=== PATIENT | female | born 1940 | race African-American/Black ===

== ENCOUNTER 2019-07-25 06:16 | Day surgery (SDC) | payer BC, OTHER ==
[2019-07-22 08:34] VITALS: BMI 30.9
[2019-07-25 06:49] VITALS: BP 133/77; PULSE 51; TEMP 98.2
== END 2019-07-25 06:58 | disposition home or self-care (01) ==
LOC: JSAMEDAYSX 06:16 → JASUSAT 06:16 → UNDOADMIN 06:16 → JASUSAT 06:58 → UNDODISIN 06:58 → EDSTATUS 08:00
PROVIDERS: ATTEND Orthopaedic Surgery Orthopaedic Surgery of the Spine
DX: Z53.8 Procedure and treatment not carried out for other reasons (principal)
CPT/HCPCS: 86850; 86900; 86901

== ENCOUNTER 2019-08-15 06:07 | Inpatient (IN) | payer OTHER, BC ==
[2019-08-15] MEDS ORDERED: BUPIVACAINE LIPOSOME/PF (EXPAREL) 266 MG/20 ML VIAL ONE (07:20)
[2019-08-15] MEDS ORDERED: HEPARIN NA (PORCINE) 5,000 UNITS/ML 1ML VIAL ONE (07:31)
[2019-08-15] MEDS ORDERED: BENZOIN/ALOE VERA/STORAX/TOLU 58 ML BOTTLE ONE (07:32)
[2019-08-15] MEDS ORDERED: THROMBIN (BOVINE) 5,000 UNIT VIAL TP ONE ×5 (07:32→10:41)
[2019-08-15] MEDS ORDERED: MIDAZOLAM HCL 2 MG/2 ML SINGLE DOSE VIAL ONE ×2 (08:10)
[2019-08-15] MEDS ORDERED: LIDOCAINE HCL/PF 2% SDV 5ML VIAL ONE ×2 (08:29→09:28)
[2019-08-15] MEDS ORDERED: fentaNYL CITRATE 250 MCG/5 ML VIAL ONE (08:29)
[2019-08-15] MEDS ORDERED: PROPOFOL 20 ML ONE ×13 (08:29→11:12)
[2019-08-15] MEDS ORDERED: SUCCINYLCHOLINE CHLORIDE 200 MG/10 ML SYRINGE ONE (08:30)
[2019-08-15] MEDS ORDERED: ROCURONIUM BROMIDE 50 MG/5 ML SYRINGE ONE (08:30)
[2019-08-15] MEDS ORDERED: ceFAZolin SODIUM 1 GM VIAL IVPB ONE ×2 (08:45→14:30)
[2019-08-15] MEDS ORDERED: ceFAZolin SODIUM 1 GM VIAL ONE (08:47)
[2019-08-15] MEDS ORDERED: TRANEXAMIC ACID 1000 MG/10 ML VIAL ONE (08:47)
[2019-08-15] MEDS ORDERED: VANCOMYCIN 1,000 MG VIAL (RESTRICTED TO ID ONLY) ONE (08:47)
[2019-08-15] MEDS ORDERED: VANCOMYCIN 1,000 MG VIAL (RESTRICTED TO ID ONLY) IVPB ONE (08:50)
[2019-08-15] MEDS ORDERED: ePHEDrine SULFATE 50 MG/1 ML AMPULE ONE (08:51)
[2019-08-15] MEDS ORDERED: EPHEDRINE SULFATE/0.9% NACL/PF 50 MG/10 ML SYRINGE NR ONE (08:51)
[2019-08-15] MEDS ORDERED: ONDANSETRON 4 MG/2 ML VIAL IVPUSH PRN ×2 (10:18→14:49)
[2019-08-15] MEDS ORDERED: PROMETHAZINE HCL 25 MG/1 ML VIAL IVPB PRN (10:18)
[2019-08-15] MEDS ORDERED: ACETAMINOPHEN 1000 MG/100 ML VIAL (NON FORMULARY) IVPB PRN (10:20)
[2019-08-15] MEDS ORDERED: HEPARIN NA (PORCINE) 5,000 UNITS/ML 1ML VIAL SQ ONE ×2 (10:26)
[2019-08-15] MEDS ORDERED: NEOSTIGMINE METHYLSULFATE 0.5 MG/1 ML - 10 ML MDV ONE (10:29)
[2019-08-15] MEDS ORDERED: GLYCOPYRROLATE 0.2 MG/1 ML VIAL ONE (10:29)
[2019-08-15] MEDS ORDERED: GELATIN SPONGE,ABSORBABLE 1 GM PACKET TP ONE (10:29)
[2019-08-15] MEDS ORDERED: LACTATED RINGERS SOLUTION 1,000 ML IV SCH (10:30)
[2019-08-15] MEDS ORDERED: KETAMINE HCL 200 MG/20 ML VIAL ONE (11:14)
[2019-08-15] MEDS ORDERED: PHENYLEPHRINE HCL 10 MG/1 ML SINGLE DOSE VIAL ONE (11:49)
--- NOTE | 2019-08-15 13:16 | PN ---
Progress Note (short form) - Note Progress Note: 79F s/p L3-S1 laminectomies; L4-L5, L5-S1 PLIF, L3-S1 posterior instrumented spinal fusion POD #0. -Admit to ICU post-op. -Pain control: NO NSAID's; patient received pre-op TLIP block w/Exparel; OK to use SUPERVISOR BOARDING if needed; transition to oral analgesia post-op. -DVT PPx: -Mechanical only: PAT's, SCD's. -Chemical: None. -Incentive spirometry q15 min. -NPO until flatus. -Karimi care; d/c when ambulating. -Post-op Ancef x 3 doses. -PT/OT/Rehab, OOB. -WBAT B/L LE. -No bending, lifting (>5 lbs), or twisting for 9-12 months. -Care per ICU & medical hospitalist teams. -Discharge planning: Abram lott; f/u 7-10 days [facility]; call for appointment; . -Will follow. Abdelrahman Hicks MD (Orthopaedic Surgery).
--- NOTE | 2019-08-15 13:19 | OP ---
Operative Note - Note: Operative Date: 08/15/19 Pre-Operative Diagnosis: 1. L3-S1 intervertebral disc disorders with associated radiculopathy. 2. L3-S1 spinal stenosis with neurogenic claudication. 3. L4-L5 , L5-S1 spondylolisthesis (anterolisthesis). 4. Multi-level axial instability with kyphotic deformity and myofascial pain complex. SEVERITY OF ILLNESS: 4. Operation: 1. L3, L4, L5, S1 laminectomies. 2. L4-L5, L5-S1 posterior lumbar interbody fusion with posterolateral arthrodesis. 3. L3-S1 posterior instrumentation. 4. L3-L4 posterolateral arthrodesis. 5. Bone autograft. 6. Bone allograft. 7. Bone marrow aspirate concentrate autograft. 8. Complex wound closure (25cm). Implants: Cages - RTI Fortilink: L4-L5: [id number]. L5-S1: [id number]. Screws - Precision Spine Reform: L3-L5: 6.5x40mm. L5-S1: 7.5x40mm Post-Operative Diagnosis: Same as Pre-op Surgeon: Abdelrahman Hicks Orange Peel Operator: Albert Hicks Anesthesiologist/FUR GLOSSER: Yancy Chang Anesthesia: General Specimens Removed: L4-L5, L5-S1 discs Estimated Blood Loss (mls): 1,500 Drains & Tubes with Location: 1 x deep HemoVac Blood Volume Replaced (mls): 625 (Cell Saver) Fluid Volume Replaced (mls): 4,000 (Crystalloid) Operative Report Dictated: Yes
[2019-08-15] MEDS ORDERED: PATIENT'S OWN MEDICATION (NON-FORMULARY) (Fluticasone/Salmeterol [Advair Hfa 230-21 Mcg In PO PRN (14:48)
[2019-08-15] MEDS ORDERED: HYDROmorphone *PCA* 10MG/50ML DISP.SYRIN PCA PRN (15:15)
[2019-08-15] MEDS ORDERED: HYDROmorphone *PCA* 10MG/50ML DISP.SYRIN ONE (15:20)
[2019-08-15] MEDS: LACTATED RINGERS SOLUTION 1,000 ML IV SCH ×2 (16:38→17:30)
[2019-08-15] MEDS ORDERED: ACETAMINOPHEN INJECTION 100 ML IVPB ONE (16:45)
--- NOTE | 2019-08-15 17:05 | CONSULT ---
Consultation: REQUESTING PROVIDER: CONSULT REQUEST: We have been asked to medically evaluate this patient s/p spinal surgery. HISTORY OF PRESENT ILLNESS: Pt is a 79 yo F with PMHx of obesity, GERD, allergic rhinitis, b/l venous insufficiency, major depression, anxiety, DM, hypertension, HLD, polyneuropathy , COPD, anxiety disorder, major depressive disorder, low back pain who came in for elective spinal surgery and is now s/p 1. L3, L4, L5, S1 laminectomies. 2. L4-L5, L5-S1 posterior lumbar interbody fusion with posterolateral arthrodesis. 3. L3-S1 posterior instrumentation. 4. L3-L4 posterolateral arthrodesis. 5. Bone autograft. 6. Bone allograft. 7. Bone marrow aspirate concentrate autograft. 8. Complex wound closure (25cm). Prior to surgery pt had a one month hx sharp lower back pain and R ankle pain that was 7-8/10 dull, achy, constant pain with intermittent sharp stabbing episodes. The pain was worse with exertion, movement and activity, and improved with medication (lyrica) and rest. When I saw the patient in PACU, she was still drowsy and unable to give hx. Pt had surgery from about 8am to about 3pm. EBL was 1500mls, received 625ml cell saver and 4l of fluid. She had a drain and a vilchis and had made 400mls of urine post op. Pt's pre-op diagnosis was 1. L3-S1 intervertebral disc disorders with associated radiculopathy. 2. L3-S1 spinal stenosis with neurogenic claudication. 3. L4-L5, L5-S1 spondylolisthesis (anterolisthesis). 4. Multi- level axial instability with kyphotic deformity and myofascial pain complex. Per physical chart, pt had R knee pain, b/l leg pain, R shoulder pain, R lateral hip pain, L base of thumb pain. PSHX: REVIEW OF SYSTEMS: Unable to obtain PHYSICAL EXAMINATION Vital Signs - 24 hr 08/15/19 08/15/19 08/15/19 06:47 15:04 15:15 Temperature 98.5 F 97.6 F Pulse Rate 54 L 62 64 Respiratory 20 14 14 Rate Blood Pressure 135/82 96/48 L 110/65 O2 Sat by Pulse 97 98 98 Oximetry (%) 08/15/19 08/15/19 08/15/19 15:30 15:45 16:00 Temperature Pulse Rate 64 64 62 Respiratory 16 20 14 Rate Blood Pressure 125/68 130/72 111/64 O2 Sat by Pulse 100 100 100 Oximetry (%) 08/15/19 08/15/19 08/15/19 16:15 16:30 16:45 Temperature Pulse Rate 60 61 60 Respiratory 14 16 14 Rate Blood Pressure 124/63 151/74 131/72 O2 Sat by Pulse 99 100 100 Oximetry (%) GENERAL: Somnolent but arousable, in no acute distress. HEAD: Normal with no signs of trauma. EYES: Pupils equal, round and reactive to light EARS, NOSE, THROAT: NC-in place. Moist mucous membranes. LUNGS: Rhonchi b/l HEART: Regular rate and rhythm, normal S1 and S2 ABDOMEN: Soft, nontender, not distended, active bowel sounds MUSCULOSKELETAL: Able to move all limbs, b/l UE against gravity. Drain, with serosanguinous fluid L back LOWER EXTREMITIES: 2+ pulses, warm, well-perfused. No calf tenderness. No peripheral edema., able to move both extremities. L plantar reflex, downward 2+ , R plantar reflex unclear. Wincing with passive movement of RLE >>LLE. Able to squeeze hands b/l NEUROLOGICAL: Somnolent, but arousable. Moves all extremities. Unable to assess in depth (due to somnolence) Vital Signs Temp 97.6 F 08/15/19 15:04 Pulse 58 L 08/15/19 17:15 Resp 14 08/15/19 17:15 BP 149/60 08/15/19 17:15 Pulse Ox 96 08/15/19 17:15 Intake & Output 08/14/19 08/15/19 08/15/19 23:59 11:59 23:59 Intake Total 4225 400 Output Total 1999 Balance 2225 400 Intake: IV 3600 400 Blood Product 625 Output: Urine 400 Estimated Blood Loss 1600 Laboratory Results - last 24 hr 08/15/19 08/15/19 06:18 06:36 POC Glucometer 110 Blood Type O POSITIVE Antibody Screen Negative Active Medications Generic Name Dose Route Start Last Admin Trade Name Freq PRN Reason Stop Dose Admin Acetaminophen 1,000 mg 08/15/19 10:20 08/15/19 16:45 Ofirmev Injection - IVPB 1,000 mg Q6H PRN Administration FEVER Amlodipine Besylate 5 mg 08/16/19 10:00 Norvasc - PO DAILY [facility] Cefazolin Sodium/Dextrose 2 gm 08/15/19 20:00 Ancef 2 Gm Premixed Ivpb - IVPB 08/16/19 08:01 Q6H [facility] Citalopram Hydrobromide 20 mg 08/16/19 10:00 Celexa - PO DAILY [facility] Diazepam 2 mg 08/15/19 22:00 Valium - PO Q12H [facility] Fentanyl 50 mcg 08/15/19 10:18 Sublimaze Injection - IVPUSH [id number] PRN PAIN-PACU ORDER X 4 DOSES ONLY Hydrochlorothiazide 12.5 mg 08/16/19 10:00 Hctz - PO DAILY [facility] Hydromorphone HCl 10 mg 08/15/19 15:15 08/15/19 15:45 Hydromorphone 10 Mg/50 Ml-Ns ANESTHESIOLOGIST PHYSICIAN 08/16/19 15:14 10 mg ANESTHESIOLOGIST PHYSICIAN PRN Administration NEED PAIN LEVEL Protocol Lactated Ringer's 1,000 mls @ 125 mls/hr 08/15/19 15:00 08/15/19 16:38 Lactated Ringers Solution IV 125 mls/hr ASDIR QUENTIN Administration Metoprolol Succinate 100 mg 08/16/19 10:00 Toprol Xl - PO DAILY [facility] Non-Formulary Medication 1 inh 08/15/19 14:48 Fluticasone/Salmeterol [Advair Hfa 230-21 Mcg Inhaler] PO BID PRN ASTHMA Ondansetron HCl 4 mg 08/15/19 10:18 Zofran Injection IVPUSH Q6H PRN NAUSEA AND/OR VOMITING Ondansetron HCl 4 mg 08/15/19 14:49 Zofran Injection IVPUSH Q6H PRN NAUSEA AND/OR VOMITING Pantoprazole Sodium 40 mg 08/16/19 10:00 Protonix - PO DAILY [facility] Pregabalin 100 mg 08/15/19 22:00 Lyrica - PO TID [facility] Promethazine HCl 12.5 mg 08/15/19 10:18 Phenergan Injection - IVPB Q6H PRN NAUSEA-FOR RESCUE AFTER 15 MIN Sitagliptin Phosphate 100 mg 08/16/19 10:00 Januvia - PO DAILY@0700 [facility] Valsartan 320 mg 08/16/19 10:00 Diovan - PO DAILY [facility] Ambulatory Orders Amlodipine Besylate [Norvasc -] 5 mg PO DAILY 07/22/19 Citalopram Hydrobromide [Celexa -] 20 mg PO DAILY 07/22/19 Fluticasone/Salmeterol [Advair Hfa 230-21 Mcg Inhaler] 1 inh PO BID PRN Metoprolol Succinate [Toprol Xl] 100 mg PO DAILY 07/22/19 Pregabalin [Lyrica] 100 mg PO TID 07/22/19 Sitagliptin Phosphate [Januvia] 100 mg PO DAILY 07/22/19 Valsartan/Hydrochlorothiazide [Diovan Hct 320-12.5 mg Tab] 1 each PO DAILY 07/22 Pantoprazole Sodium [Protonix] 40 mg PO DAILY 07/25/19 ASSESSMENT/PLAN: Pt is a 79 yo F with PMHx of obesity, GERD, allergic rhinitis, b/l venous insufficiency, major depression, anxiety, DM, hypertension, HLD, polyneuropathy , COPD, anxiety disorder, major depressive disorder, low back pain now s/p L3- S1 laminectomies; L4-L5, L5-S1 PLIF, L3-S1 posterior instrumented spinal fusion Neuro #Hx of polyneuropathy #anxiety disorder specific, major depressive disorder #Hx of low back pain now s/p surgery s/p L3-S1 laminectomies; L4-L5, L5-S1 PLIF, L3-S1 posterior instrumented spinal fusion POD #0. Seen in PACU, still recovering from anesthesia, somnolent but arousable, able to follow commands Moves all extremities, uanble to assess sensation Per Dr Hicks: Pain control: NO NSAID's; patient received pre-op TLIP block w/Exparel; OK to use ANESTHESIOLOGIST PHYSICIAN if needed (Pt on ANESTHESIOLOGIST PHYSICIAN pump by anesthesia); transition to oral analgesia post-op. Cont celexa Cont lyrica Iv tylenol ANESTHESIOLOGIST PHYSICIAN pump with hydromorphone cardio #hypertension, HLD Pt received beta blockers in am to day Will resume home meds in am Norvasc 10mg daily Cont toprol xl 100mg daily Would hold hctz while pt on fluids Cont valsartan Pulm #COPD Acute on chronic hypoxic resp failure on NC Cont supplemental o2 to maintain sats >90% Incentive spirometry Cont advair renal Vilchis care; d/c when ambulating. GI Hypoactive bowel sounds, will hold feeds till flatus Protonix 40mg daily Zofran, promethazine Endo: DM Home irisuvia ID Post-op Ancef x 3 doses (2g Q6H) FEN Cont LR @125 Monitor lytes, replete as needed NPO until flatus PPX DVT PPx: Mechanical only with PAT's, SCD's. - No Chemical ppx. Dispo: Admit to ICU post-op. PT/OT/Rehab, OOB WBAT B/L LE No bending, lifting (>5 lbs), or twisting for 9-12 months Discharge planning: Abram lott; f/u 7-10 days after rehab discharge at [facility] office; call for appointment; . Dispo: We will continue to follow the patient. Thank you for this consultative opportunity. Visit type - Emergency Visit Emergency Visit: Yes ED Registration Date: 08/15/19 Care time: The patient presented to the Emergency Department on the above date and was hospitalized for further evaluation of their emergent condition. - New Patient This patient is new to me today: Yes Date on this admission: 08/15/19 - Critical Care Critical Care patient: Yes Total Critical Care Time (in minutes): 37 Critical Care Statement: The care of this patient involved high complexity decision making to prevent further life threatening deterioration of the patient 's condition and/or to evaluate & treat vital organ system(s) failure or risk of failure. ATTENDING PHYSICIAN STATEMENT I saw and evaluated the patient. I reviewed the resident's note and discussed the case with the resident. I agree with the resident's findings and plan as documented. SUBJECTIVE: OBJECTIVE: ASSESSMENT AND PLAN:
--- NOTE | 2019-08-15 17:23 | OP ---
DATE OF OPERATION: DATE OF DICTATION: 08/15/2019 SURGEON: Abdelrahman Hicks MD PRIMARY MILL ROLLER: Albert Hicks MD PREOPERATIVE DIAGNOSES: 1. Spondylolisthesis, L4-5. 2. Spinal stenosis, L3, 4, 5, S1. 3. Segmental instability, L4-5, L5-S1. 4. Right L4, 5, S1 radiculopathy. POSTOPERATIVE DIAGNOSES: 1. Spondylolisthesis, L4-5. 2. Spinal stenosis, L3, 4, 5, S1. 3. Segmental instability, L4-5, L5-S1. 4. Right L4, 5, S1 radiculopathy. OPERATION PERFORMED: 1. L3, L4, L5, S1 bilateral laminectomies and facetectomies. (78235-12, 91317 -50 x 3) 2. L4-L5 & L5-S1 posterolateral arthrodesis & posterior lumbar interbody fusion (PLIF). (42049, 67712) 3. L4-L5 & L5-S1 insertion biomechanical device. (26983 x 2) 4. L3-S1 posterior instrumentation. (95036-07-28) 5. Morselized bone autograft. (26231) 6. Morselized bone allograft. (01497) 7. Bone marrow aspiration for bone grafting. (49863) 8. Complex wound closure, 4 layers, 30cm. (59886 x 4) ANESTHESIA: General. ANTIBIOTICS GIVEN: 2 g Kefzol, 1 g vancomycin preoperative; 1 g Kefzol given at the end of the procedure. BLOOD LOSS: Approximately 1700 mL, 700 mL Cell Saver blood given back to the patient. Patient remained stable throughout. DESCRIPTION OF PROCEDURE: Patient correctly identified. Brought to the operating room. Placed prone on a Abimael table. All appropriate bony points padded. Eyes especially attended to. Abdomen free and brachial plexus free by flexion and adducting the arms at the level of the shoulder. A routine prep of skin with soap and alcohol then following with a full Betadine scrub solution, wiped off with alcohol, DuraPrep applied. Midline incision was utilized extending from to the tip of the spinous process L2 right down to S1. Subperiosteal dissection performed. Skin incised right down to the tip of the spinous process. This was deep wound because of the listhesis, which was grade 2-3 listhetic prosthesis. Dissection was taken out down the side of the spinous process, over the lamina, over the facet joints, out to the tips of the transverse process lifting the muscle off of the transverse process exposing the bone of the transverse process from L3 right down to the ala of the sacrum S1. The spine was tatty meaning significant amount of reactive fibrous bone tissue complicating the significant instability situation. This was readily noted with the hypertrophic facet arthropathy but also loose fragments and calcifications of the capsules noted. All of this tissue was resected. The spinous processes were resected using a PICS Auditing bone cutting device. The bone was stripped of soft tissue completely out of the tip of the transverse processes. Once this had been performed, the verification of levels, which was a lateral fluoroscopic x- ray. The spondylolisthesis at L4-5 readily noted. A difficult decompression performed. This necessitated use of Leksell rongeurs to debulk the bone bed posteriorly and then finding the interspace at each level, the Leksell was utilized to open up each space. Then using 4, 5, and 6 Kerrison upcuts, the central laminectomies were performed from L3 right down to S1 that was including a good component of the dorsum of S1. A very severe, tight stenosis was encountered. In order to get out laterally, the only way this could be done safely was by using osteotomes to incise longitudinally from the midsection of the pars intra-articularis down to the inferior aspect of the facet joints. These were imploded inwards towards the canal and removed appropriately using Kerrison as well as Leksell rongeurs. Following this, the theca was readily noted, and the dissection was so wide that each nerve root from L3 right down to S1 on both left and right hand side could be seen visually as it entered the lateral part of the foramen. Extensive ligamentum flavum from osseous material was removed from the canal. The listhesis had caused severe stenosis at the L4-5 level, and even once we decompressed the area, the hourglass stenosis was imprinted significantly at the inner theca just above the L5 nerve roots, that is at the L4-5 disk. With some difficulty, the disk was entered, but because of the bulging disk at L4-5 and this dissection was performed on the left hand side, the disk space was opened. The shaving was to size 11 and a size 12 Fortilink x 23 mm cage inserted L4-5. The interbody space was packed with autologous bone that was harvested from the posterior elements and milled in a [employer] mill. The Fortilink cage brought about expansion of the disk height to bring about actual improvement in listhesis from a grade 2 -3 now less than a grade 1 spondylolisthesis. Not complete reduction achieved. Nerve roots remained well maintained. At L4-5, L5-S1, the L5-S1 disk was dealt with in the exact same manner. The only difference is the cage measured a size 10 that was shaving with the actual shaver was to size 9 and a press-fit size 10 cage inserted much like at the L4-5 level, and the bone graft was packed into the interspace accordingly. Once this had been performed and completed, the wounds were repeatedly thoroughly lavaged. The retractors, which were also released every 15-20 minutes to allow blood supply to return to the muscle mass. The Jamshidi needle was placed into the ilium, and 120 mL of bone marrow aspirate concentrate was harvested. This was spun down for the CD34 cells and for the bone graft to be mixed with the bone grafting material as well. Once we had performed this, the pedicle screw construct was inserted at each level at the junction of the transverse process and the superior spinous process at each level, that is from 3, 4, 5, S1 was drilled with a 4/5 drill bit. Each was palpated with a ball tip feeler. The screws measured 40 x 6.5, and the S1 screws measured 7.5 x 40. The screws were tested and found to be completely safe, according to all neurologic sequela. The tulips on the screwheads were carefully coaxed into an anatomical straight position, and a rodding was performed from L3-S1 both left and right hand side. The rods were contoured to accommodate a lordosis. Once this had been performed, the muscle was lifted off the intertransverse plane and a liberal amount of bone packed into the interspace to bring about a finalization of the posterolateral arthrodesis, which was instrumented at L3, 4, 5, S1. All neuromonitoring revealed complete safe passage of the screws. Screws were inspected with lateral and AP fluoroscopic x-rays, and using anatomical guidelines, likewise, all screws were well seated as were the cages. Intraoperative neuromonitoring actually improved through the case, particularly on the right side where her right radiculopathy was flared. It was a definite improvement in all numbers, accordingly. The muscle was trimmed for any necrotic torn muscle from the retractions. The 30cm complex wound closure was as follows: Muscle 1 Vicryl, fascia 1 Vicryl, skin and subcutaneous with 1 Vicryl. All 3 lateral layers with No. 1 Vicryl, and the skin was closed with No. 2 monofilament material. Operation revealed no complications (extremely difficult procedure but went well). MD INGRID [id number] MTDD
--- NOTE | 2019-08-15 21:26 | HP ---
CHIEF COMPLAINT: s/p back surgery w/ Dr. Hicks HISTORY OF PRESENT ILLNESS: Pt is a 79 yo F with PMHx of obesity, GERD, allergic rhinitis, b/l venous insufficiency, major depression, anxiety, DM, hypertension, HLD, polyneuropathy , COPD, anxiety disorder, major depressive disorder, low back pain who came in for elective spinal surgery and is now s/p 1. L3, L4, L5, S1 laminectomies. 2. L4-L5, L5-S1 posterior lumbar interbody fusion with posterolateral arthrodesis. 3. L3-S1 posterior instrumentation. 4. L3-L4 posterolateral arthrodesis. 5. Bone autograft. 6. Bone allograft. 7. Bone marrow aspirate concentrate autograft. 8. Complex wound closure (25cm). Prior to surgery pt had a one month hx sharp lower back pain and R ankle pain that was 7-8/10 dull, achy, constant pain with intermittent sharp stabbing episodes. The pain was worse with exertion, movement and activity, and improved with medication (lyrica) and rest. Pt had surgery from about 8am to about 3pm. EBL was 1500mls, received 625ml cell saver and 4l of fluid. She had a drain and a vilchis and had made 400mls of urine post op. Pt's pre-op diagnosis was 1. L3-S1 intervertebral disc disorders with associated radiculopathy. 2. L3-S1 spinal stenosis with neurogenic claudication. 3. L4-L5, L5-S1 spondylolisthesis (anterolisthesis). 4. Multi- level axial instability with kyphotic deformity and myofascial pain complex. Per physical chart, pt had R knee pain, b/l leg pain, R shoulder pain, R lateral hip pain, L base of thumb pain. At bedside, patient complained of back discomfort but noted it was improved with CASING FINISHER AND STUFFER pump. Endorsed some weakness and numbness of the LE. R side was weaker and had more numbness than the L. Denied cp, sob, fever, chills, abd pain, n/v/c /d, dizziness, lightheadedness, headaches. PAST MEDICAL HISTORY: as above PAST SURGICAL HISTORY: as above Allergies No Known Allergies Allergy (Verified 07/22/19 08:24) HOME MEDICATIONS: Home Medications Medication Instructions Recorded Amlodipine Besylate [Norvasc -] 5 mg PO DAILY 07/22/19 Citalopram Hydrobromide [Celexa -] 20 mg PO DAILY 07/22/19 Fluticasone/Salmeterol [Advair Hfa 1 inh PO BID PRN 07/22/19 230-21 Mcg Inhaler] Metoprolol Succinate [Toprol Xl] 100 mg PO DAILY 07/22/19 Pregabalin [Lyrica] 100 mg PO TID 07/22/19 Sitagliptin Phosphate [Januvia] 100 mg PO DAILY 07/22/19 Valsartan/Hydrochlorothiazide 1 each PO DAILY 07/22/19 [Diovan Hct 320-12.5 mg Tab] Pantoprazole Sodium [Protonix] 40 mg PO DAILY 07/25/19 REVIEW OF SYSTEMS CONSTITUTIONAL: Absent: fever, chills, diaphoresis, generalized weakness, malaise, loss of appetite HEENT: Absent: rhinorrhea, nasal congestion, throat pain, throat swelling, difficulty swallowing, visual changes CARDIOVASCULAR: Absent: chest pain, syncope, palpitations, irregular heart rate, lightheadedness , peripheral edema RESPIRATORY: Absent: cough, shortness of breath, dyspnea with exertion, orthopnea, wheezing, GASTROINTESTINAL: Absent: abdominal pain, abdominal distension, nausea, vomiting, diarrhea, constipation, GENITOURINARY: Absent: dysuria, frequency, urgency, hesitancy, hematuria, flank pain, MUSCULOSKELETAL: Absent: myalgia, arthralgia, joint swelling, back pain, neck pain SKIN: Absent: rash, itching, pallor HEMATOLOGIC/IMMUNOLOGIC: Absent: easy bleeding, easy bruising, lymphadenopathy, frequent infections ENDOCRINE: Absent: unexplained weight gain, unexplained weight loss, heat intolerance, cold intolerance NEUROLOGIC: focal weakness of bilateral lower extremities R>L (chronic), numbness of RLE>LLE Absent: headache, dizziness, unsteady gait, seizure, mental status changes, bladder or bowel incontinence PSYCHIATRIC: Absent: anxiety, depression, suicidal or homicidal ideation, hallucinations. PHYSICAL EXAMINATION Vital Signs - 24 hr 08/15/19 08/15/19 08/15/19 06:47 15:04 15:15 Temperature 98.5 F 97.6 F Pulse Rate 54 L 62 64 Respiratory 20 14 14 Rate Blood Pressure 135/82 96/48 L 110/65 O2 Sat by Pulse 97 98 98 Oximetry (%) 0108/15/19 08/15/19 15:30 15:45 16:00 Temperature Pulse Rate 64 64 62 Respiratory 16 16 14 Rate Blood Pressure 125/68 130/72 111/64 O2 Sat by Pulse 100 100 100 Oximetry (%) 08/15/19 08/15/19 08/15/19 16:15 16:30 16:45 Temperature Pulse Rate 60 61 60 Respiratory 14 16 14 Rate Blood Pressure 124/63 151/74 131/72 O2 Sat by Pulse 100 100 99 Oximetry (%) 08/15/19 08/15/19 08/15/19 17:00 17:15 17:30 Temperature Pulse Rate 59 L 58 L 62 Respiratory 14 14 14 Rate Blood Pressure 109/69 149/60 149/60 O2 Sat by Pulse 99 96 99 Oximetry (%) 08/15/19 08/15/19 08/15/19 17:45 18:00 18:18 Temperature 97.8 F 97.2 F L Pulse Rate 62 62 62 Respiratory 14 16 18 Rate Blood Pressure 120/58 L 120/58 L 145/76 O2 Sat by Pulse 100 99 Oximetry (%) 08/15/19 08/15/19 08/15/19 18:21 19:58 20:18 Temperature Pulse Rate 60 Respiratory 17 Rate Blood Pressure 123/65 O2 Sat by Pulse 100 100 Oximetry (%) GENERAL: Awake, alert, and fully oriented, in no acute distress. HEAD: Normal with no signs of trauma. EYES: Pupils equal, round and reactive to light, extraocular movements intact, sclera anicteric, conjunctiva clear. EARS, NOSE, THROAT: Oropharynx clear without exudates. Moist mucous membranes. NECK: Normal range of motion, supple without lymphadenopathy, JVD LUNGS: Breath sounds equal, clear to auscultation bilaterally. No wheezes, and no crackles. No accessory muscle use. HEART: Regular rate and rhythm, normal S1 and S2 without murmur, rub. ABDOMEN: Soft, nontender, not distended, hypoactive bowel sounds, no guarding, no rebound, no masses. MUSCULOSKELETAL: Normal range of motion at all joints. No bony deformities or tenderness. UPPER EXTREMITIES: 2+ pulses, warm, well-perfused. No cyanosis. No clubbing. No peripheral edema. LOWER EXTREMITIES: 2+ pulses, warm, well-perfused. No calf tenderness. No peripheral edema. NEUROLOGICAL: Cranial nerves II-XII intact. Upper extremities 5/5 muscle strength bilaterally. Lower extremities: R (3/5) throughout, L (4/5) throughout. Noted RLE decreased sensation to gross touch compared with left. Slight decrease in sensation on R upper extremity to gross touch. Gait not assessed. PSYCHIATRIC: Cooperative. Good eye contact. Appropriate mood and affect. SKIN: Warm, dry, normal turgor, no rashes or lesions noted, normal capillary refill. Laboratory Results - last 24 hr 08/15/19 08/15/19 06:18 06:36 POC Glucometer 110 Blood Type O POSITIVE Antibody Screen Negative ASSESSMENT/PLAN: Pt is a 79 yo F with PMHx of obesity, GERD, allergic rhinitis, b/l venous insufficiency, major depression, anxiety, DM, hypertension, HLD, polyneuropathy , COPD, anxiety disorder, major depressive disorder, low back pain admitted after undergoing elective spine procedure. S/p Laminectomy and spinal fusion - Admit to ICU post-op. - Pain control: NO NSAID's; patient received pre-op TLIP block w/Exparel - CASING FINISHER AND STUFFER pump as needed; transition to oral analgesia post-op. - Incentive spirometry q15 min. - NPO until flatus. - Vilchis care; d/c when ambulating. - Post-op Ancef x 3 doses. - PT/OT/Rehab, OOB. - WBAT B/L LE. - No bending, lifting (>5 lbs), or twisting for 9-12 months. HTN - on home valsartan, amlodipine, metoprolol - holding HCTZ while patient on fluids DM - BGM Q6h - ISS - A1c Polyneuropathy - on home Lyrica GERD - on home pantoprazole COPD - incentive spirometry - O2 as needed DVT PPx - Mechanical only: PAT's, SCD's. - no chemic prophylaxis FEN - LR at 125cc/hr, can stop as patient begins to eat - continue to monitor electrolytes and replete as necessary - NPO until flatus Dispo - admit to ICU for monitoring - to go to SNF after hospital stay for strength training Visit type - Emergency Visit Emergency Visit: No - New Patient This patient is new to me today: Yes Date on this admission: 08/16/19 - Critical Care Critical Care patient: Yes Total Critical Care Time (in minutes): 35 Critical Care Statement: The care of this patient involved high complexity decision making to prevent further life threatening deterioration of the patient 's condition and/or to evaluate & treat vital organ system(s) failure or risk of failure.
[2019-08-15] MEDS: PREGABALIN 100 MG CAPSULE PO SCH (21:27)
[2019-08-15] MEDS: diazePAM 2 MG TABLET PO SCH (21:27)
[2019-08-15] MEDS: ceFAZolin 2 GRAM PREMIX BAG IVPB SCH (21:27)
--- NOTE | 2019-08-15 23:40 | PN ---
Teaching Attending Note Name of Resident: Sinan Perez ATTENDING PHYSICIAN STATEMENT I saw and evaluated the patient. I reviewed the resident's note and discussed the case with the resident. I agree with the resident's findings and plan as documented. SUBJECTIVE: 79-year-old woman admitted for L3-S1 laminectomy, L4-L5, L5-S1 posterior lumbar interbody fusion, L3-S1 posterior instrument indicated spinal fusion. Currently status postop. Transferred to ICU for postop monitoring. Appears comfortable, not in acute distress. OBJECTIVE: Last Vital Signs Temp Pulse Resp BP Pulse Ox 97.2 F L 65 14 125/64 100 08/15/19 18:18 08/15/19 22:00 08/15/19 22:00 08/15/19 22:00 08/15/19 19:58 GENERAL: Well developed, well nourished. Awake and alert. No acute distress. HEENT: Normocephalic, atraumatic. PERRLA, EOMI. No conjunctival pallor. Sclera are non- icteric. NECK: Supple. Full ROM. No JVD. Carotid pulses 2+ and symmetric, without bruits. No thyromegaly. No lymphadenopathy. CARDIOVASCULAR: Regular rate and rhythm. No murmurs, rubs, or gallops. Distal pulses are 2+ and symmetric. PULMONARY: No evidence of respiratory distress. Lungs clear to auscultation bilaterally. No wheezing, rales or rhonchi. ABDOMINAL: Soft. Non-tender. Non-distended. No rebound or guarding. No organomegaly. Normoactive bowel sounds. MUSCULOSKELETAL Normal range of motion at all joints. No bony deformities or tenderness. No CVA tenderness. EXTREMITIES: No cyanosis. No clubbing. No edema. No calf tenderness. SKIN: Warm and dry. Normal capillary refill. No rashes. No jaundice. PSYCHIATRIC: Cooperative. Good eye contact. Appropriate mood and affect. ASSESSMENT AND PLAN: 79-year-old woman admitted for L3-S1 laminectomy, L4-L5, L5-S1 posterior lumbar interbody fusion, L3-S1 posterior instrument indicated spinal fusion. Currently status postop. Transferred to ICU for postop monitoring. Admit to ICU CBC and chemistry Morphine IV as needed for pain control Zofran IV as needed if nausea or vomiting Gentle IV fluid hydration Incentive spirometry BGM's every 6 hours Orthopedic surgery follow-up for wound care Heparin subcutaneously for DVT prophylaxis
[2019-08-16] MEDS: ceFAZolin 2 GRAM PREMIX BAG IVPB SCH ×2 (03:04→09:30)
[2019-08-16] MEDS: PREGABALIN 100 MG CAPSULE PO SCH ×3 (06:07→21:42)
[2019-08-16] MEDS: INSULIN SLIDING SCALE (NOVOLOG) 1 VIAL SQ SCH ×4 (07:17→21:43)
[2019-08-16 08:38] LABS: BASO % 0.2 % (0-2.0); EOS % 0.1 % (0-4.5); HEMATOCRIT 29.7 % (32.4-45.2); HEMOGLOBIN 9.6 GM/dL (10.7-15.3); LYMPH % 3.2 % (8-40); MCH 28.3 pg (25.7-33.7); MCHC 32.4 g/dl (32.0-36.0); MEAN CELL VOLUME 87.3 fl (80-96); MEAN PLT VOLUME 8.7 fl (7.5-11.1); MONO % 6.9 % (3.8-10.2); NEUT % 89.6 % (42.8-82.8); PLATELET COUNT 173 K/MM3 (134-434); RDW 12.9 % (11.6-15.6); WHITE BLOOD COUNT 16.9 K/mm3 (4.0-10.0)
[2019-08-16 09:00] LABS: BLOOD UREA NITROGEN 11.6 mg/dL (7-18); CALCIUM 7.8 mg/dL (8.5-10.1); CREATININE 0.8 mg/dL (0.55-1.3); MAGNESIUM 1.9 mg/dL (1.8-2.4); POTASSIUM 3.7 mmol/L (3.5-5.1)
[2019-08-16] MEDS ORDERED: PT OWN MED DRAWER 7, Y5N ONE ×2 (09:27→16:11)
[2019-08-16] MEDS: diazePAM 2 MG TABLET PO SCH ×2 (09:32→21:42)
[2019-08-16] MEDS ORDERED: CITALOPRAM HYDROBROMIDE 20 MG TABLET PO SCH (10:00)
[2019-08-16] MEDS ORDERED: PANTOPRAZOLE 40 MG TABLET PO SCH (10:00)
[2019-08-16] MEDS ORDERED: VALSARTAN 160 MG TABLET (UD) PO SCH (10:00)
[2019-08-16] MEDS ORDERED: HYDROCHLOROTHIAZIDE 12.5 MG CAPSULE (FP) PO SCH (10:00)
[2019-08-16] MEDS ORDERED: amLODIPine BESYLATE 5 MG TABLET (FP) PO SCH (10:00)
[2019-08-16] MEDS: BUDESONIDE/FORMETEROL FUMARATE 80/4.5 mcg INHALER IH SCH ×2 (10:44→21:42)
--- NOTE | 2019-08-16 11:28 | PN ---
Teaching Attending Note Name of Resident: Katherine Montero ATTENDING PHYSICIAN STATEMENT I saw and evaluated the patient. I reviewed the resident's note and discussed the case with the resident. I agree with the resident's findings and plan as documented. SUBJECTIVE: Patient seen and examined in the ICU. Awake and alert. Pain is 6/10, better than yesterday. Feels better sensation in the LE. No CP or SOB. Intake & Output 08/13/19 08/14/19 08/15/19 08/16/19 23:59 23:59 23:59 23:59 Intake Total 5025 1557 Output Total 2800 1150 Balance 2225 407 Weight 182 lb 8.684 oz Last Vital Signs Temp Pulse Resp BP Pulse Ox 99.2 F 81 15 142/66 100 08/16/19 10:00 08/16/19 10:00 08/16/19 10:00 08/16/19 10:00 08/16/19 09:00 Active Medications Acetaminophen (Ofirmev Injection -) 1,000 mg IVPB Q6H PRN PRN Reason: FEVER Last Admin: 08/15/19 16:45 Dose: 1,000 mg Amlodipine Besylate (Norvasc -) 5 mg PO DAILY [facility] Last Admin: 08/16/19 09:32 Dose: 5 mg Budesonide/Formoterol Fumarate (Symbicort 80/4.5mcg -) 2 puff IH BID [facility] Last Admin: 08/16/19 10:44 Dose: 2 puff Citalopram Hydrobromide (Celexa -) 20 mg PO DAILY [facility] Last Admin: 08/16/19 09:33 Dose: 20 mg Diazepam (Valium -) 2 mg PO Q12H [facility] Last Admin: 08/16/19 09:32 Dose: 2 mg Fentanyl (Sublimaze Injection -) 50 mcg IVPUSH [id number] PRN PRN Reason: PAIN-PACU ORDER X 4 DOSES ONLY Hydrochlorothiazide (Hctz -) 12.5 mg PO DAILY [facility] Last Admin: 08/16/19 09:32 Dose: 12.5 mg Hydromorphone HCl (Hydromorphone 10 Mg/50 Ml-Ns) 10 mg RETAIL CUSTOMER SERVICE REPRESENTATIVE RETAIL CUSTOMER SERVICE REPRESENTATIVE PRN; Protocol PRN Reason: NEED PAIN LEVEL Stop: 08/16/19 15:14 Last Admin: 08/15/19 15:45 Dose: 10 mg Lactated Ringer's (Lactated Ringers Solution) 1,000 mls @ 125 mls/hr IV ASDIR [facility] Last Admin: 08/15/19 17:30 Dose: 300 mls Insulin Aspart (Novolog Vial Sliding Scale -) 1 vial SQ ACHS [facility]; Protocol Last Admin: 08/16/19 07:17 Dose: Not Given Metoprolol Succinate (Toprol Xl -) 100 mg PO DAILY [facility] Last Admin: 08/16/19 09:32 Dose: 100 mg Ondansetron HCl (Zofran Injection) 4 mg IVPUSH Q6H PRN PRN Reason: NAUSEA AND/OR VOMITING Ondansetron HCl (Zofran Injection) 4 mg IVPUSH Q6H PRN PRN Reason: NAUSEA AND/OR VOMITING Pantoprazole Sodium (Protonix -) 40 mg PO DAILY [facility] Last Admin: 08/16/19 09:32 Dose: 40 mg Pregabalin (Lyrica -) 100 mg PO TID [facility] Last Admin: 08/16/19 06:07 Dose: 100 mg Promethazine HCl (Phenergan Injection -) 12.5 mg IVPB Q6H PRN PRN Reason: NAUSEA-FOR RESCUE AFTER 15 MIN Sitagliptin Phosphate (Januvia -) 100 mg PO DAILY@0700 [facility] Valsartan (Diovan -) 320 mg PO DAILY [facility] Last Admin: 08/16/19 09:32 Dose: 320 mg GENERAL: Awake and alert, in no acute distress. HEAD: Normal with no signs of trauma. EYES: Pupils equal, round and reactive to light EARS, NOSE, THROAT: NC-in place. Moist mucous membranes. LUNGS: Rhonchi b/l HEART: Regular rate and rhythm, normal S1 and S2 ABDOMEN: Soft, nontender, not distended, active bowel sounds MUSCULOSKELETAL: Able to move all limbs, b/l UE against gravity. Drain, with serosanguinous fluid Left back LOWER EXTREMITIES: 2+ pulses, warm, well-perfused. No calf tenderness. No peripheral edema., able to move both extremities. L plantar reflex, downward 2+ , R plantar reflex unclear. Wincing with passive movement of RLE >>LLE. Able to squeeze hands b/l NEUROLOGICAL: Moves all extremities. Laboratory Results - last 24 hr 08/16/19 08/16/19 08/16/19 06:15 08:20 08:20 WBC 16.9 H RBC 3.40 L Hgb 9.6 L Hct 29.7 L MCV 87.3 MCH 28.3 MCHC 32.4 RDW 12.9 Plt Count 173 MPV 8.7 Absolute Neuts (auto) 15.1 H Neutrophils % 89.6 H Lymphocytes % 3.2 L Monocytes % 6.9 Eosinophils % 0.1 Basophils % 0.2 Nucleated RBC % 0 Sodium 143 Potassium 3.7 Chloride 107 Carbon Dioxide 32 Anion Gap 4 L BUN 11.6 Creatinine 0.8 Est GFR (CKD-EPI)AfAm 82.42 Est GFR (CKD-EPI)NonAf 71.11 POC Glucometer 139 Random Glucose 144 H Hemoglobin A1c % Calcium 7.8 L Magnesium 1.9 08/16/19 08:20 WBC RBC Hgb Hct MCV MCH MCHC RDW Plt Count MPV Absolute Neuts (auto) Neutrophils % Lymphocytes % Monocytes % Eosinophils % Basophils % Nucleated RBC % Sodium Potassium Chloride Carbon Dioxide Anion Gap BUN Creatinine Est GFR (CKD-EPI)AfAm Est GFR (CKD-EPI)NonAf POC Glucometer Random Glucose Hemoglobin A1c % 5.1 Calcium Magnesium ASSESSMENT/PLAN: POD #1: L3-S1 laminectomies; L4-L5, L5-S1 PLIF, L3-S1 posterior instrumented spinal fusion Obesity GERD Allergic rhinitis Bilateral venous insufficiency Major depression Anxiety DM Hypertension HLD Polyneuropathy COPD Anxiety disorder Pain control O2 as needed Incentive Spirometry VTE prophylaxis No NSAIDS PO as tolerated OOB to chair BD TX PRN Floor when cleared by surgery Dr Johnson
--- NOTE | 2019-08-16 11:42 | PN ---
Physical Exam: SUBJECTIVE: Patient seen and examined. No acute events overnight. Pain controlled w/ BOARD HAMMER OPERATOR pump. OBJECTIVE: Vital Signs Period Temp Pulse Resp BP Sys/Hsieh Pulse Ox Last 24 Hr 97.2 F-99.2 F 58-81 14-20 96-151/48-76 96-100 GENERAL: AOx3 NAD HEENT: NCAT. MMM. Conjunctiva clear. LUNGS: CTABL. No incr work of breathing HEART: Regular rate and rhythm, S1, S2 without murmur, rub or gallop. ABDOMEN: Soft, nontender, nondistended, normoactive bowel sounds EXTREMITIES: 2+ pulses, warm, well-perfused, no edema. NEUROLOGICAL: Decr ROM b/l LE; 2/5 leg extension & flexion RLE, diminished d/t pain. Able to move toes. 5/5 UE extension/ flexion b/l. Good handgrip strength. PSYCH: Normal mood, normal affect. SKIN: Warm, dry, normal turgor, no rashes or lesions noted Laboratory Results - last 24 hr 08/16/19 08/16/19 08/16/19 06:15 08:20 08:20 WBC 16.9 H RBC 3.40 L Hgb 9.6 L Hct 29.7 L MCV 87.3 MCH 28.3 MCHC 32.4 RDW 12.9 Plt Count 173 MPV 8.7 Absolute Neuts (auto) 15.1 H Neutrophils % 89.6 H Lymphocytes % 3.2 L Monocytes % 6.9 Eosinophils % 0.1 Basophils % 0.2 Nucleated RBC % 0 Sodium 143 Potassium 3.7 Chloride 107 Carbon Dioxide 32 Anion Gap 4 L BUN 11.6 Creatinine 0.8 Est GFR (CKD-EPI)AfAm 82.42 Est GFR (CKD-EPI)NonAf 71.11 POC Glucometer 139 Random Glucose 144 H Hemoglobin A1c % Calcium 7.8 L Magnesium 1.9 08/16/19 08:20 WBC RBC Hgb Hct MCV MCH MCHC RDW Plt Count MPV Absolute Neuts (auto) Neutrophils % Lymphocytes % Monocytes % Eosinophils % Basophils % Nucleated RBC % Sodium Potassium Chloride Carbon Dioxide Anion Gap BUN Creatinine Est GFR (CKD-EPI)AfAm Est GFR (CKD-EPI)NonAf POC Glucometer Random Glucose Hemoglobin A1c % 5.1 Calcium Magnesium Active Medications Generic Name Dose Route Start Last Admin Trade Name Freq PRN Reason Stop Dose Admin Acetaminophen 1,000 mg 08/15/19 10:20 08/15/19 16:45 Ofirmev Injection - IVPB 1,000 mg Q6H PRN Administration FEVER Amlodipine Besylate 5 mg 08/16/19 10:00 08/16/19 09:32 Norvasc - PO 5 mg DAILY [facility] Administration Budesonide/Formoterol Fumarate 2 puff 08/16/19 10:00 08/16/19 10:44 Symbicort 80/4.5mcg - IH 2 puff BID [facility] Administration Citalopram Hydrobromide 20 mg 08/16/19 10:00 08/16/19 09:33 Celexa - PO 20 mg DAILY [facility] Administration Diazepam 2 mg 08/15/19 22:00 08/16/19 09:32 Valium - PO 2 mg Q12H [facility] Administration Fentanyl 50 mcg 08/15/19 10:18 Sublimaze Injection - IVPUSH [id number] PRN PAIN-PACU ORDER X 4 DOSES ONLY Hydrochlorothiazide 12.5 mg 08/16/19 10:00 08/16/19 09:32 Hctz - PO 12.5 mg DAILY [facility] Administration Hydromorphone HCl 10 mg 08/15/19 15:15 08/15/19 15:45 Hydromorphone 10 Mg/50 Ml-Ns BOARD HAMMER OPERATOR 08/16/19 15:14 10 mg BOARD HAMMER OPERATOR PRN Administration NEED PAIN LEVEL Protocol Lactated Ringer's 1,000 mls @ 125 mls/hr 08/15/19 15:00 08/15/19 17:30 Lactated Ringers Solution IV 300 mls ASDIR [facility] Administration Insulin Aspart 1 vial 08/16/19 07:00 08/16/19 07:17 Novolog Vial Sliding Scale - SQ Not Given ACHS [facility] Protocol Metoprolol Succinate 100 mg 08/16/19 10:00 08/16/19 09:32 Toprol Xl - PO 100 mg DAILY [facility] Administration Ondansetron HCl 4 mg 08/15/19 10:18 Zofran Injection IVPUSH Q6H PRN NAUSEA AND/OR VOMITING Ondansetron HCl 4 mg 08/15/19 14:49 Zofran Injection IVPUSH Q6H PRN NAUSEA AND/OR VOMITING Pantoprazole Sodium 40 mg 08/16/19 10:00 08/16/19 09:32 Protonix - PO 40 mg DAILY [facility] Administration Pregabalin 100 mg 08/15/19 22:00 08/16/19 06:07 Lyrica - PO 100 mg TID [facility] Administration Promethazine HCl 12.5 mg 08/15/19 10:18 Phenergan Injection - IVPB Q6H PRN NAUSEA-FOR RESCUE AFTER 15 MIN Sitagliptin Phosphate 100 mg 08/16/19 10:00 Januvia - PO DAILY@0700 [facility] Valsartan 320 mg 08/16/19 10:00 08/16/19 09:32 Diovan - PO 320 mg DAILY [facility] Administration ASSESSMENT/PLAN: 79 y.o. F PMH GERD, allergic rhinitis, obesity, venous insufficiency, major depressive d/o, anxiety d/o, DM, HTN, HLD, polyneuropathy, COPD, chronic back pain presenting for post op observation s/p L3-S1 laminectomies, L4-L5 L5-S1 PLIF, L3-S1 post instrumented spinal fusion POD#1. 1500cc EBL, 4L crystalloids & 625mL cell saver administered intra-op. #COUNTER HOP -AOx3 -pain controlled w/ BOARD HAMMER OPERATOR pump, tylenol prn -Lyrica 100mg PO TID -continue home meds: citalopram, valium #CV -no NSAIDS -continue home meds: amlodipine, valsartan, HCTZ, metoprolol #Pulm -Monitor O2 sats -breathing well on RA -continue incentive spirometer #Endo -ISS -BGMs ACHS -Januvia (home med) #MSK -WBAT b/l LE -PT, OT, rehab -no bending/ lifting >5lb/ twisting for 9-12 mo as per ortho -monitor outputs from hemovac -ortho following patient #ID -s/p 3 doses ancef post-op #ODELL -Sachi in place -monitor outputs #FEN -LR @125mL/ hr -trend lytes -NPO #PPX -PPI 40mg PO daily -SCDs Visit type - Emergency Visit Emergency Visit: No - New Patient This patient is new to me today: Yes Date on this admission: 08/16/19 - Critical Care Critical Care patient: Yes Total Critical Care Time (in minutes): 45 Critical Care Statement: The care of this patient involved high complexity decision making to prevent further life threatening deterioration of the patient 's condition and/or to evaluate & treat vital organ system(s) failure or risk of failure. ATTENDING PHYSICIAN STATEMENT I saw and evaluated the patient. I reviewed the resident's note and discussed the case with the resident. I agree with the resident's findings and plan as documented. SUBJECTIVE: OBJECTIVE: ASSESSMENT AND PLAN:
--- NOTE | 2019-08-16 14:25 | PN ---
Progress Note (short form) - Note Progress Note: Anesthesia post op/pain Pt seen and examined S:Alert and awake s/o nausea no pain O: Vital Signs Temperature 99.0 F 08/16/19 14:00 Pulse Rate 77 08/16/19 14:00 Respiratory Rate 23 H 08/16/19 14:00 Blood Pressure 152/71 08/16/19 14:00 O2 Sat by Pulse Oximetry (%) 100 08/16/19 09:00 CBC, BMP 08/16/19 08:20 08/16/19 08:20 A/P L3-S1 PLIF on FINISHED CLOTH CHECKER Doing fine post op Continue FINISHED CLOTH CHECKER Sinan Sanabria MD
[2019-08-16] MEDS ORDERED: traMADol HCL 50 MG TABLET PO PRN (16:23)
[2019-08-16] MEDS ORDERED: PROMETHAZINE HCL 25 MG/1 ML VIAL IVPB PRN (16:47)
[2019-08-16] MEDS ORDERED: ONDANSETRON 4 MG/2 ML VIAL IVPUSH PRN (16:47)
[2019-08-16] MEDS: LACTATED RINGERS SOLUTION 1,000 ML IV SCH (17:00)
[2019-08-16] MEDS: ACETAMINOPHEN 325 MG TABLET (FP) PO SCH ×2 (18:08→21:43)
--- NOTE | 2019-08-16 18:34 | PN ---
Progress Note, Physician Chief Complaint: back pain History of Present Illness: seen and examine this AM. Feeling better, still in pain. Afebrile - Current Medication List Current Medications: Active Medications Acetaminophen (Tylenol -) 650 mg PO Q6H [facility] Stop: 08/19/19 16:29 Last Admin: 08/16/19 18:08 Dose: 650 mg Amlodipine Besylate (Norvasc -) 5 mg PO DAILY [facility] Budesonide/Formoterol Fumarate (Symbicort 80/4.5mcg -) 2 puff IH BID [facility] Citalopram Hydrobromide (Celexa -) 20 mg PO DAILY [facility] Diazepam (Valium -) 2 mg PO BID [facility] Hydrochlorothiazide (Hctz -) 12.5 mg PO DAILY [facility] Lactated Ringer's (Lactated Ringers Solution) 1,000 mls @ 125 mls/hr IV ASDIR [facility] Insulin Aspart (Novolog Vial Sliding Scale -) 1 vial SQ ACHS [facility]; Protocol Metoprolol Succinate (Toprol Xl -) 100 mg PO DAILY [facility] Ondansetron HCl (Zofran Injection) 4 mg IVPUSH Q6H PRN PRN Reason: NAUSEA AND/OR VOMITING Oxycodone HCl (Roxicodone -) 5 mg PO Q3H PRN PRN Reason: PAIN LEVEL 4 - 6 Oxycodone HCl (Roxicodone -) 10 mg PO Q3H PRN PRN Reason: PAIN LEVEL 7 - 10 Pantoprazole Sodium (Protonix -) 40 mg PO DAILY [facility] Pregabalin (Lyrica -) 100 mg PO TID [facility] Sitagliptin Phosphate (Januvia -) 100 mg PO DAILY@0700 [facility] Tramadol HCl (Ultram -) 50 mg PO Q3H PRN PRN Reason: PAIN LEVEL 1 - 3 Valsartan (Diovan -) 320 mg PO DAILY [facility] - Objective Vital Signs: Vital Signs Temperature 99.0 F 08/16/19 14:00 Pulse Rate 81 08/16/19 16:00 Respiratory Rate 19 08/16/19 16:00 Blood Pressure 159/74 08/16/19 16:00 O2 Sat by Pulse Oximetry (%) 100 08/16/19 09:00 Constitutional: Yes: Well Nourished, No Distress, Calm Additional Findings/Remarks: GENERAL: NAD HEENT: NCAT. MMM LUNGS: CTA b/l, no w/r/r HEART: RRR, s1s2 ABDOMEN: Soft, NT/ND, NABS EXTREMITIES: 2+ pulses, warm, well-perfused, no edema. MSK: limited exam due to pain Labs: CBC, BMP 08/16/19 08:20 08/16/19 08:20 Assessment/Plan 79-year-old woman admitted for L3-S1 laminectomy, L4-L5, L5-S1 posterior lumbar interbody fusion, L3-S1 posterior instrument indicated spinal fusion. -POD#1 -pain control -antiemetics -IVF -incentive spirometer -surgery followup Obesity GERD Bilateral venous insufficiency Major depression/Anxiety DM HTN HLD Polyneuropathy COPD -cw current regimen
[2019-08-16] MEDS: oxyCODONE HCL 5 MG TABLET PO PRN (21:41)
[2019-08-17] MEDS ORDERED: ACETAMINOPHEN 1000 MG/100 ML VIAL (NON FORMULARY) IVPB ONE (02:17)
[2019-08-17] MEDS ORDERED: PT OWN MED DRAWER 7, Y5N ONE ×2 (05:59→09:54)
[2019-08-17] MEDS: PREGABALIN 100 MG CAPSULE PO SCH ×3 (06:12→22:30)
[2019-08-17] MEDS: ACETAMINOPHEN 325 MG TABLET (FP) PO SCH ×4 (06:12→22:30)
[2019-08-17] MEDS: INSULIN SLIDING SCALE (NOVOLOG) 1 VIAL SQ SCH ×4 (06:20→22:31)
[2019-08-17 07:54] LABS: HEMOGLOBIN 8.1 GM/dL (10.7-15.3); MCH 28.2 pg (25.7-33.7); MCHC 32.4 g/dl (32.0-36.0); MEAN CELL VOLUME 87.1 fl (80-96); PLATELET COUNT 164 K/MM3 (134-434); RBC 2.87 M/mm3 (3.60-5.2); RDW 12.9 % (11.6-15.6); WHITE BLOOD COUNT 24.2 K/mm3 (4.0-10.0)
[2019-08-17 08:29] LABS: ALBUMIN 2.4 g/dl (3.4-5.0); BILIRUBIN,TOTAL 0.8 mg/dL (0.2-1); BLOOD UREA NITROGEN 18.1 mg/dL (7-18); CALCIUM 8.2 mg/dL (8.5-10.1); CREATININE 0.7 mg/dL (0.55-1.3); MAGNESIUM 2.1 mg/dL (1.8-2.4); PHOSPHOROUS 2.7 mg/dL (2.5-4.9); POTASSIUM 3.4 mmol/L (3.5-5.1); TOT PROT 5.2 g/dl (6.4-8.2)
[2019-08-17] MEDS: CITALOPRAM HYDROBROMIDE 20 MG TABLET PO SCH (09:57)
[2019-08-17] MEDS: PANTOPRAZOLE 40 MG TABLET PO SCH (09:58)
[2019-08-17] MEDS: amLODIPine BESYLATE 5 MG TABLET (FP) PO SCH (09:58)
[2019-08-17] MEDS: VALSARTAN 160 MG TABLET (UD) PO SCH (09:58)
[2019-08-17] MEDS: diazePAM 2 MG TABLET PO SCH ×2 (10:00→22:30)
[2019-08-17] MEDS: BUDESONIDE/FORMETEROL FUMARATE 80/4.5 mcg INHALER IH SCH ×3 (10:01→22:31)
[2019-08-17] MEDS: LACTATED RINGERS SOLUTION 1,000 ML IV SCH ×3 (10:02→18:58)
--- NOTE | 2019-08-17 12:55 | PN ---
Progress Note (short form) - Note Progress Note: POD#2 8th floor Was in ICU vitals Did get up with help C/O minimal LBP Deep low grade ache Vitals As per chart CVS Perfusing well Stable Resp moist endobronchial ABD Soft mild distension Good B/s passed flatus Neuro At base line Wound dry Drain removed Assess doing well PLAN Pain MX PT mobilize [facility]AT general nursing
--- NOTE | 2019-08-17 14:07 | PN ---
Progress Note (short form) - Note Progress Note: Anesthesia/pain Pt seen and examined S:Alert and awake O: Vital Signs Temperature 99.3 F 08/17/19 08:25 Pulse Rate 90 08/17/19 08:25 Respiratory Rate 20 08/17/19 08:25 Blood Pressure 110/64 08/17/19 08:25 O2 Sat by Pulse Oximetry (%) 100 08/16/19 23:02 CBC, BMP 08/17/19 06:53 08/17/19 06:53 A/P: s/p l3-S1 PLIF Comfortable watch H/H Continue current care Sinan Sanabria MD
--- NOTE | 2019-08-17 14:39 | PATH ---
Surgical Pathology Report Patient Name: CHRIS RAMIRES Med. Rec. #: [id number] /Age/Gender: 1940 (Age: 79) / F Account: [id number] Location: [facility] MED/SURG Taken: 08/15/2019 Received: 08/16/2019 Reported: 08/17/2019 Physicians: Abdelrahman Hicks M.D. Specimen(s) Received DISCS, L4, L5, S1 Clinical History Spinal stenosis and spondylolisthesis Final Diagnosis DISCS, L4, L5, S1, POSTERIOR LUMBAR INTERBODY FUSION: BENIGN INTERVERTEBRAL DISC TISSUE AND BONE WITH REACTIVE CHANGES. Electronically Signed Saundra Foss M.D. Gross Description Received in formalin labeled "L4, L5, S1 discs," is a 3.8 x 2.8 x 0.4 cm aggregate of cain fragments of fibrocartilaginous tissue. A artist's representative portion is submitted in one cassette. /08/16/2019 saudi08/16/2019
--- NOTE | 2019-08-17 18:36 | PN ---
Progress Note, Physician Chief Complaint: back pain History of Present Illness: seen and examined this AM. spiked temp overnight - Current Medication List Current Medications: Active Medications Acetaminophen (Tylenol -) 650 mg PO Q6H [facility] Stop: 08/19/19 16:29 Last Admin: 08/17/19 16:43 Dose: 650 mg Amlodipine Besylate (Norvasc -) 5 mg PO DAILY [facility] Last Admin: 08/17/19 09:58 Dose: 5 mg Budesonide/Formoterol Fumarate (Symbicort 80/4.5mcg -) 2 puff IH BID [facility] Last Admin: 08/17/19 10:03 Dose: 2 puff Citalopram Hydrobromide (Celexa -) 20 mg PO DAILY [facility] Last Admin: 08/17/19 09:57 Dose: 20 mg Diazepam (Valium -) 2 mg PO BID [facility] Last Admin: 08/17/19 10:00 Dose: 2 mg Hydrochlorothiazide (Hctz -) 12.5 mg PO DAILY [facility] Lactated Ringer's (Lactated Ringers Solution) 1,000 mls @ 125 mls/hr IV ASDIR [facility] Last Admin: 08/17/19 17:56 Dose: Not Given Insulin Aspart (Novolog Vial Sliding Scale -) 1 vial SQ ACHS [facility]; Protocol Last Admin: 08/17/19 16:40 Dose: Not Given Metoprolol Succinate (Toprol Xl -) 100 mg PO DAILY [facility] Last Admin: 08/17/19 09:59 Dose: 100 mg Ondansetron HCl (Zofran Injection) 4 mg IVPUSH Q6H PRN PRN Reason: NAUSEA AND/OR VOMITING Oxycodone HCl (Roxicodone -) 5 mg PO Q3H PRN PRN Reason: PAIN LEVEL 4 - 6 Oxycodone HCl (Roxicodone -) 10 mg PO Q3H PRN PRN Reason: PAIN LEVEL 7 - 10 Last Admin: 08/16/19 21:41 Dose: 10 mg Pantoprazole Sodium (Protonix -) 40 mg PO DAILY [facility] Last Admin: 08/17/19 09:58 Dose: 40 mg Pregabalin (Lyrica -) 100 mg PO TID [facility] Last Admin: 08/17/19 13:29 Dose: 100 mg Sitagliptin Phosphate (Januvia -) 100 mg PO DAILY@0700 [facility] Last Admin: 08/17/19 06:12 Dose: 100 mg Tramadol HCl (Ultram -) 50 mg PO Q3H PRN PRN Reason: PAIN LEVEL 1 - 3 Valsartan (Diovan -) 320 mg PO DAILY [facility] Last Admin: 08/17/19 09:58 Dose: 320 mg - Objective Vital Signs: Vital Signs Temperature 99.9 F H 08/17/19 17:16 Pulse Rate 78 08/17/19 17:16 Respiratory Rate 08/17/19 17:16 Blood Pressure 128/59 L 08/17/19 17:16 O2 Sat by Pulse Oximetry (%) 100 08/16/19 23:02 Constitutional: Yes: Well Nourished, No Distress, Calm Cardiovascular: Yes: WNL, Regular Rate and Rhythm Respiratory: Yes: WNL, Regular, CTA Bilaterally Gastrointestinal: Yes: WNL, Normal Bowel Sounds, Soft, Abdomen, Obese Musculoskeletal: Yes: WNL Extremities: Yes: WNL Edema: No Labs: CBC, BMP 08/17/19 06:53 08/17/19 06:53 Assessment/Plan 79-year-old woman admitted for L3-S1 laminectomy, L4-L5, L5-S1 posterior lumbar interbody fusion, L3-S1 posterior instrument indicated spinal fusion. -POD#2 -febrile/leukocytosis -pancultured, hold off on abx at this time -check cxr -pain control -antiemetics -advance diet -cw IVF, DC in AM -incentive spirometer -surgery followup Obesity GERD Bilateral venous insufficiency Major depression/Anxiety DM HTN HLD Polyneuropathy COPD -cw current regimen
[2019-08-17 23:13] LABS: EPI CELLS 2.6 /HPF (0-5/HPF); HYALINE CASTS 3 /lpf (0-8); URINE APPEARANCE CLEAR; URINE BACTERIA 0.7 /hpf (NEGATIVE); URINE BILIRUBIN NEGATIVE (NEGATIVE); URINE COLOR YELLOW; URINE GLUCOSE (UA) NEGATIVE (NEGATIVE); URINE KETONE TRACE (NEGATIVE); URINE LEUK ESTERASE NEGATIVE (NEGATIVE); URINE NITRITE NEGATIVE (NEGATIVE); URINE PROTEIN NEGATIVE (NEGATIVE); URINE RBC 2 /hpf (0-4); URINE WBC 3 /hpf (0-5)
[2019-08-18] MEDS: LACTATED RINGERS SOLUTION 1,000 ML IV SCH (03:40)
[2019-08-18] MEDS: PREGABALIN 100 MG CAPSULE PO SCH ×3 (06:04→22:58)
[2019-08-18] MEDS: INSULIN SLIDING SCALE (NOVOLOG) 1 VIAL SQ SCH ×4 (06:05→23:08)
[2019-08-18] MEDS: ACETAMINOPHEN 325 MG TABLET (FP) PO SCH ×4 (06:05→22:57)
[2019-08-18 07:45] LABS: EOS % 0.1 % (0-4.5); HEMATOCRIT 23.5 % (32.4-45.2); HEMOGLOBIN 7.5 GM/dL (10.7-15.3); LYMPH % 3.4 % (8-40); MCH 27.8 pg (25.7-33.7); MCHC 31.9 g/dl (32.0-36.0); MEAN CELL VOLUME 87.1 fl (80-96); MEAN PLT VOLUME 9.1 fl (7.5-11.1); NEUT % 89.5 % (42.8-82.8); PLATELET COUNT 172 K/MM3 (134-434); RDW 12.9 % (11.6-15.6); WHITE BLOOD COUNT 21.8 K/mm3 (4.0-10.0)
[2019-08-18 08:09] LABS: ALBUMIN 2.3 g/dl (3.4-5.0); BILIRUBIN,TOTAL 0.6 mg/dL (0.2-1); BLOOD UREA NITROGEN 12.8 mg/dL (7-18); CALCIUM 8.7 mg/dL (8.5-10.1); CREATININE 0.5 mg/dL (0.55-1.3); POTASSIUM 3.2 mmol/L (3.5-5.1)
[2019-08-18 09:19] LABS: ANISOCYTOSIS 0; MACROCYTOSIS 0; PLATELET ESTIMATE NORMAL
[2019-08-18] MEDS: amLODIPine BESYLATE 5 MG TABLET (FP) PO SCH (10:19)
[2019-08-18] MEDS: CITALOPRAM HYDROBROMIDE 20 MG TABLET PO SCH (10:19)
[2019-08-18] MEDS: diazePAM 2 MG TABLET PO SCH ×2 (10:19→22:58)
[2019-08-18] MEDS: HYDROCHLOROTHIAZIDE 12.5 MG CAPSULE (FP) PO SCH (10:19)
[2019-08-18] MEDS: VALSARTAN 160 MG TABLET (UD) PO SCH (10:20)
[2019-08-18] MEDS: PANTOPRAZOLE 40 MG TABLET PO SCH (10:20)
[2019-08-18] MEDS: oxyCODONE HCL 5 MG TABLET PO PRN ×2 (10:20→20:14)
[2019-08-18] MEDS: BUDESONIDE/FORMETEROL FUMARATE 80/4.5 mcg INHALER IH SCH ×2 (10:53→22:59)
--- NOTE | 2019-08-18 16:45 | PN ---
Progress Note, Physician Chief Complaint: back pain History of Present Illness: seen and examined this AM. feeling better, no BM yet, passing flatus - Current Medication List Current Medications: Active Medications Acetaminophen (Tylenol -) 650 mg PO Q6H [facility] Stop: 08/19/19 16:29 Last Admin: 08/18/19 16:35 Dose: 650 mg Amlodipine Besylate (Norvasc -) 5 mg PO DAILY [facility] Last Admin: 08/18/19 10:19 Dose: 5 mg Budesonide/Formoterol Fumarate (Symbicort 80/4.5mcg -) 2 puff IH BID [facility] Last Admin: 08/18/19 10:53 Dose: 2 puff Citalopram Hydrobromide (Celexa -) 20 mg PO DAILY [facility] Last Admin: 08/18/19 10:19 Dose: 20 mg Diazepam (Valium -) 2 mg PO BID [facility] Last Admin: 08/18/19 10:19 Dose: 2 mg Hydrochlorothiazide (Hctz -) 12.5 mg PO DAILY [facility] Last Admin: 08/18/19 10:19 Dose: 12.5 mg Lactated Ringer's (Lactated Ringers Solution) 1,000 mls @ 125 mls/hr IV ASDIR [facility] Last Admin: 08/18/19 03:40 Dose: 125 mls/hr Insulin Aspart (Novolog Vial Sliding Scale -) 1 vial SQ ACHS [facility]; Protocol Last Admin: 08/18/19 16:33 Dose: Not Given Metoprolol Succinate (Toprol Xl -) 100 mg PO DAILY [facility] Last Admin: 08/18/19 10:20 Dose: 100 mg Ondansetron HCl (Zofran Injection) 4 mg IVPUSH Q6H PRN PRN Reason: NAUSEA AND/OR VOMITING Oxycodone HCl (Roxicodone -) 5 mg PO Q3H PRN PRN Reason: PAIN LEVEL 4 - 6 Oxycodone HCl (Roxicodone -) 10 mg PO Q3H PRN PRN Reason: PAIN LEVEL 7 - 10 Last Admin: 08/18/19 10:20 Dose: 10 mg Pantoprazole Sodium (Protonix -) 40 mg PO DAILY [facility] Last Admin: 08/18/19 10:20 Dose: 40 mg Pregabalin (Lyrica -) 100 mg PO TID [facility] Last Admin: 08/18/19 13:24 Dose: 100 mg Sitagliptin Phosphate (Januvia -) 100 mg PO DAILY@0700 [facility] Last Admin: 08/18/19 06:04 Dose: 100 mg Tramadol HCl (Ultram -) 50 mg PO Q3H PRN PRN Reason: PAIN LEVEL 1 - 3 Valsartan (Diovan -) 320 mg PO DAILY [facility] Last Admin: 08/18/19 10:20 Dose: 320 mg - Objective Vital Signs: Vital Signs Temperature 99.3 F 08/18/19 13:00 Pulse Rate 79 08/18/19 13:00 Respiratory Rate 08/18/19 13:00 Blood Pressure 115/57 L 08/18/19 13:00 O2 Sat by Pulse Oximetry (%) 97 08/18/19 09:00 Constitutional: Yes: Well Nourished, No Distress Cardiovascular: Yes: WNL, Regular Rate and Rhythm Respiratory: Yes: WNL, Regular, CTA Bilaterally Gastrointestinal: Yes: WNL, Normal Bowel Sounds, Soft, Abdomen, Obese Musculoskeletal: Yes: WNL Extremities: Yes: WNL Edema: No Labs: CBC, BMP 08/18/19 06:40 08/18/19 06:40 Assessment/Plan 79-year-old woman admitted for L3-S1 laminectomy, L4-L5, L5-S1 posterior lumbar interbody fusion, L3-S1 posterior instrument indicated spinal fusion. -POD#3 -cxr no acute pathology, cx neg so far, afebrile -monitor off abx -monitor h/h, transfuse for h/h<7 -pain control -antiemetics -advance diet -dc ivf -start bowel regimen -incentive spirometer -surgery followup Obesity GERD Bilateral venous insufficiency Major depression/Anxiety DM HTN HLD Polyneuropathy COPD -cw current regimen
[2019-08-18] MEDS ORDERED: POTASSIUM CHLORIDE TABS 20 MEQ TABLET.ER (FP) PO ONE (16:49)
[2019-08-18] MEDS: DOCUSATE SODIUM 100 MG CAPSULE (FP) PO SCH (22:58)
[2019-08-19] MEDS: ACETAMINOPHEN 325 MG TABLET (FP) PO SCH ×2 (06:01→11:45)
[2019-08-19] MEDS: PREGABALIN 100 MG CAPSULE PO SCH ×3 (06:02→21:33)
[2019-08-19] MEDS: DOCUSATE SODIUM 100 MG CAPSULE (FP) PO SCH ×3 (06:02→21:20)
[2019-08-19] MEDS: INSULIN SLIDING SCALE (NOVOLOG) 1 VIAL SQ SCH ×4 (06:02→21:21)
[2019-08-19 08:20] LABS: BASO % 0.1 % (0-2.0); EOS % 2.8 % (0-4.5); HEMATOCRIT 22.8 % (32.4-45.2); HEMOGLOBIN 7.5 GM/dL (10.7-15.3); MCH 28.2 pg (25.7-33.7); MCHC 32.9 g/dl (32.0-36.0); MEAN CELL VOLUME 85.9 fl (80-96); MONO % 9.7 % (3.8-10.2); NEUT % 79.4 % (42.8-82.8); PLATELET COUNT 236 K/MM3 (134-434); RBC 2.66 M/mm3 (3.60-5.2); RDW 12.8 % (11.6-15.6); WHITE BLOOD COUNT 14.1 K/mm3 (4.0-10.0)
[2019-08-19 08:32] LABS: BLOOD UREA NITROGEN 12.8 mg/dL (7-18); CALCIUM 8.5 mg/dL (8.5-10.1); CREATININE 0.6 mg/dL (0.55-1.3); POTASSIUM 3.6 mmol/L (3.5-5.1)
[2019-08-19] MEDS: HYDROCHLOROTHIAZIDE 12.5 MG CAPSULE (FP) PO SCH (10:40)
[2019-08-19] MEDS: oxyCODONE HCL 5 MG TABLET PO PRN (10:40)
[2019-08-19] MEDS: VALSARTAN 160 MG TABLET (UD) PO SCH (10:40)
[2019-08-19] MEDS: PANTOPRAZOLE 40 MG TABLET PO SCH (10:40)
[2019-08-19] MEDS: CITALOPRAM HYDROBROMIDE 20 MG TABLET PO SCH (10:40)
[2019-08-19] MEDS: amLODIPine BESYLATE 5 MG TABLET (FP) PO SCH (10:40)
[2019-08-19] MEDS: BUDESONIDE/FORMETEROL FUMARATE 80/4.5 mcg INHALER IH SCH ×2 (10:41→21:21)
[2019-08-19] MEDS: diazePAM 2 MG TABLET PO SCH ×3 (10:48→21:20)
--- NOTE | 2019-08-19 13:43 | PN ---
Physical Exam: SUBJECTIVE: Patient seen and examined OBJECTIVE: Has intermittent pain in the back, has no other complaints at this time. Vital Signs Period Temp Pulse Resp BP Sys/Hsieh Pulse Ox Last 24 Hr 98.1 F-98.7 F 66-79 20-20 114-142/55-66 93-95 In no distress CVS:S1S2 CTAB Abd:BS+nt/nd Laboratory Results - last 24 hr 08/18/19 08/18/19 08/19/19 16:30 22:56 06:00 WBC RBC Hgb Hct MCV MCH MCHC RDW Plt Count MPV Absolute Neuts (auto) Neutrophils % Lymphocytes % Monocytes % Eosinophils % Basophils % Nucleated RBC % Sodium Potassium Chloride Carbon Dioxide Anion Gap BUN Creatinine Est GFR (CKD-EPI)AfAm Est GFR (CKD-EPI)NonAf POC Glucometer 148 135 124 Random Glucose Calcium 08/19/19 08/19/19 08/19/19 07:20 07:20 11:11 WBC 14.1 H RBC 2.66 L Hgb 7.5 L Hct 22.8 L MCV 85.9 MCH 28.2 MCHC 32.9 RDW 12.8 Plt Count 236 D MPV 9.0 Absolute Neuts (auto) 11.1 H Neutrophils % 79.4 Lymphocytes % 8.0 D Monocytes % 9.7 Eosinophils % 2.8 D Basophils % 0.1 D Nucleated RBC % 0 Sodium 138 Potassium 3.6 Chloride 101 Carbon Dioxide 33 H Anion Gap 4 L BUN 12.8 Creatinine 0.6 Est GFR (CKD-EPI)AfAm 101.90 Est GFR (CKD-EPI)NonAf 87.92 POC Glucometer 151 Random Glucose 132 H Calcium 8.5 Active Medications Generic Name Dose Route Start Last Admin Trade Name Freq PRN Reason Stop Dose Admin Acetaminophen 650 mg 08/16/19 16:30 08/19/19 11:45 Tylenol - PO 08/19/19 16:29 650 mg Q6H [facility] Administration Amlodipine Besylate 5 mg 08/17/19 10:00 08/19/19 10:40 Norvasc - PO 5 mg DAILY [facility] Administration Budesonide/Formoterol Fumarate 2 puff 08/16/19 22:00 08/19/19 10:41 Symbicort 80/4.5mcg - IH 2 puff BID [facility] Administration Citalopram Hydrobromide 20 mg 08/17/19 10:00 08/19/19 10:40 Celexa - PO 20 mg DAILY [facility] Administration Diazepam 2 mg 08/16/19 22:00 08/19/19 11:23 Valium - PO 2 mg BID [facility] Administration Docusate Sodium 100 mg 08/18/19 22:00 08/19/19 13:23 Colace - PO 100 mg TID [facility] Administration Hydrochlorothiazide 12.5 mg 08/17/19 10:00 08/19/19 10:40 Hctz - PO 12.5 mg DAILY [facility] Administration Insulin Aspart 1 vial 08/16/19 22:00 08/19/19 11:13 Novolog Vial Sliding Scale - SQ Not Given ACHS [facility] Protocol Metoprolol Succinate 100 mg 08/17/19 10:00 08/19/19 10:40 Toprol Xl - PO 100 mg DAILY [facility] Administration Ondansetron HCl 4 mg 08/16/19 16:47 Zofran Injection IVPUSH Q6H PRN NAUSEA AND/OR VOMITING Oxycodone HCl 5 mg 08/16/19 16:23 Roxicodone - PO Q3H PRN PAIN LEVEL 4 - 6 Oxycodone HCl 10 mg 08/16/19 16:23 08/19/19 10:40 Roxicodone - PO 10 mg Q3H PRN Administration PAIN LEVEL 7 - 10 Pantoprazole Sodium 40 mg 08/17/19 10:00 08/19/19 10:40 Protonix - PO 40 mg DAILY [facility] Administration Pregabalin 100 mg 08/16/19 22:00 08/19/19 13:23 Lyrica - PO 100 mg TID [facility] Administration Sitagliptin Phosphate 100 mg 08/17/19 07:00 08/19/19 06:02 Januvia - PO 100 mg DAILY@0700 [facility] Administration Tramadol HCl 50 mg 08/16/19 16:23 Ultram - PO Q3H PRN PAIN LEVEL 1 - 3 Valsartan 320 mg 08/17/19 10:00 08/19/19 10:40 Diovan - PO 320 mg DAILY [facility] Administration ASSESSMENT/PLAN: 79 Y/O F W DM, HTN, HLD, Polyneuropathy, COPD L3-S1 laminectomy, L4-L5, L5-S1 posterior lumbar interbody fusion, L3-S1 posterior instrument indicated spinal fusion. There was concern for sepsis in light of leukocytosis but he has been afebrile off antibiotics. -POD#4 -cxr no acute pathology, cx neg so far, afebrile -monitor off abx -monitor h/h, transfuse for h/h<7 -pain control with opioids atand regular tylenol as needed C/W bowel regimen -incentive spirometer -surgery followup Obesity GERD Bilateral venous insufficiency Major depression/Anxiety COPD: No complaints at this time -cw current regimen Visit type - Emergency Visit Emergency Visit: No - New Patient This patient is new to me today: Yes Date on this admission: 08/19/19 - Critical Care Critical Care patient: No - Discharge Referral Referred to [facility] Med P.C.: No
[2019-08-19] MEDS ORDERED: PT OWN MED DRAWER 7, Y5N ONE (16:24)
[2019-08-19] MEDS ORDERED: ACETAMINOPHEN 1000 MG/100 ML VIAL (NON FORMULARY) IVPB ONE (21:57)
[2019-08-20] MEDS: oxyCODONE HCL 5 MG TABLET PO PRN ×5 (02:52→20:15)
[2019-08-20] MEDS ORDERED: PT OWN MED DRAWER 7, Y5N ONE ×2 (06:04→10:56)
[2019-08-20] MEDS: PREGABALIN 100 MG CAPSULE PO SCH ×3 (06:25→23:08)
[2019-08-20] MEDS: DOCUSATE SODIUM 100 MG CAPSULE (FP) PO SCH ×3 (06:25→23:08)
[2019-08-20] MEDS: INSULIN SLIDING SCALE (NOVOLOG) 1 VIAL SQ SCH ×4 (06:27→23:09)
[2019-08-20] MEDS: HYDROCHLOROTHIAZIDE 12.5 MG CAPSULE (FP) PO SCH (11:08)
[2019-08-20] MEDS: VALSARTAN 160 MG TABLET (UD) PO SCH (11:08)
[2019-08-20] MEDS: CITALOPRAM HYDROBROMIDE 20 MG TABLET PO SCH (11:08)
[2019-08-20] MEDS: PANTOPRAZOLE 40 MG TABLET PO SCH (11:09)
[2019-08-20] MEDS: amLODIPine BESYLATE 5 MG TABLET (FP) PO SCH (11:09)
[2019-08-20] MEDS: BUDESONIDE/FORMETEROL FUMARATE 80/4.5 mcg INHALER IH SCH ×2 (11:10→23:09)
[2019-08-20] MEDS: diazePAM 2 MG TABLET PO SCH ×2 (11:10→23:08)
--- NOTE | 2019-08-20 13:06 | PN ---
Progress Note (short form) - Note Progress Note: POD#5 Much improved Awake fully orientated received 1 unit blood Apyrexial walked in the hallway No significant pain no leg pain Intermittent burning R and L thigh ( [place]) Feels subjective improvement in LE strength. Eating lunch O/E CVS Stable RESP Endobronchial secretions better Sill tachypnoeic and using nasal canula Oxygen. Abdomen Soft less distended No belly tenderness.Passing flatus Wound Dry Neuro Fully intact Assess Post L3 to [id number] and instrumented posterolateral arthrodesis making steady progress. PLAN For 1 more unit blood PT Mobilze Pain mx D/C planningsee to rehab Thursday See in office 3 weeks [phone] [facility]
[2019-08-20] MEDS: ACETAMINOPHEN 500 MG TABLET (FP) PO SCH ×2 (13:25→23:08)
--- NOTE | 2019-08-20 14:05 | PN ---
Progress Note, Physician History of Present Illness: Patient seen and examined at bedside. no complaints. got 1 unit PRBC last night and is to receive second unit now. Tmax 101.3 at midnight but currently afebrile. No labs from today as patient is actively being transfused. She denies nausea vomiting fever chills chest pain or SOB. not having bowel movements but passing flatus and urinating. eating and drinking well. - Current Medication List Current Medications: Active Medications Acetaminophen (Tylenol -) 1,000 mg PO Q8H [facility] Last Admin: 08/20/19 13:25 Dose: 1,000 mg Amlodipine Besylate (Norvasc -) 5 mg PO DAILY [facility] Last Admin: 08/20/19 11:09 Dose: 5 mg Budesonide/Formoterol Fumarate (Symbicort 80/4.5mcg -) 2 puff IH BID [facility] Last Admin: 08/20/19 11:10 Dose: 2 puff Citalopram Hydrobromide (Celexa -) 20 mg PO DAILY [facility] Last Admin: 08/20/19 11:08 Dose: 20 mg Diazepam (Valium -) 2 mg PO BID [facility] Last Admin: 08/20/19 11:10 Dose: 2 mg Docusate Sodium (Colace -) 100 mg PO TID [facility] Last Admin: 08/20/19 13:26 Dose: 100 mg Hydrochlorothiazide (Hctz -) 12.5 mg PO DAILY [facility] Last Admin: 08/20/19 11:08 Dose: 12.5 mg Insulin Aspart (Novolog Vial Sliding Scale -) 1 vial SQ ACHS [facility]; Protocol Last Admin: 08/20/19 11:23 Dose: Not Given Metoprolol Succinate (Toprol Xl -) 100 mg PO DAILY [facility] Last Admin: 08/20/19 11:09 Dose: 100 mg Ondansetron HCl (Zofran Injection) 4 mg IVPUSH Q6H PRN PRN Reason: NAUSEA AND/OR VOMITING Oxycodone HCl (Roxicodone -) 5 mg PO Q3H PRN PRN Reason: PAIN LEVEL 4 - 6 Last Admin: 08/20/19 08:52 Dose: 5 mg Oxycodone HCl (Roxicodone -) 10 mg PO Q3H PRN PRN Reason: PAIN LEVEL 7 - 10 Last Admin: 08/20/19 08:55 Dose: 10 mg Pantoprazole Sodium (Protonix -) 40 mg PO DAILY [facility] Last Admin: 08/20/19 11:09 Dose: 40 mg Pregabalin (Lyrica -) 100 mg PO TID [facility] Last Admin: 08/20/19 13:26 Dose: 100 mg Sitagliptin Phosphate (Januvia -) 100 mg PO DAILY@0700 [facility] Last Admin: 08/20/19 06:25 Dose: 100 mg Valsartan (Diovan -) 320 mg PO DAILY [facility] Last Admin: 08/20/19 11:08 Dose: 320 mg - Objective Vital Signs: Vital Signs Temperature 98.3 F 08/20/19 05:00 Pulse Rate 84 08/20/19 05:00 Respiratory Rate 18 08/20/19 05:00 Blood Pressure 135/80 08/20/19 05:00 O2 Sat by Pulse Oximetry (%) 95 08/19/19 22:57 Constitutional: Yes: No Distress Eyes: Yes: Other (conjunctival pallor) HENT: Yes: Atraumatic Cardiovascular: Yes: Regular Rate and Rhythm Respiratory: Yes: CTA Bilaterally Gastrointestinal: Yes: Soft Extremities: Yes: WNL Edema: No Wound/Incision: Yes: Clean/Dry, Well Approximated Neurological: Yes: Alert Psychiatric: Yes: Alert Labs: CBC, BMP 08/19/19 07:20 08/19/19 07:20 Impression/Plan Impression/Plan: 79-year-old woman with multiple medical problems admitted POD#5 s/p L3-S1 laminectomy, L4-L5, L5-S1 posterior lumbar interbody fusion, L3-S1 posterior instrument indicated spinal fusion. Obesity GERD Bilateral venous insufficiency Major depression/Anxiety DM HbA1C 5.1% ? if prediabetes HTN HLD Polyneuropathy COPD trend cbc transfuse 1 unit today repeat labs after tranfsuion and/or in AM antipyretics incentive spirometer f/u culutres-BCx negative at 72 hours UA negative and UCx is negative For HTN continue HCTZ norvasc valsartan and metoprolol continue symbicort for COPD pain control with oxycodone and tylenol continue Lyrica bowel regimen with colace antiemetics continue celexa for depression and valium for anxiety PPI for history of GERD Discussed with Dr. Hicks in person Visit type - Emergency Visit Emergency Visit: No - New Patient This patient is new to me today: Yes Date on this admission: 08/20/19 - Critical Care Critical Care patient: No
[2019-08-21] MEDS: INSULIN SLIDING SCALE (NOVOLOG) 1 VIAL SQ SCH ×4 (06:36→21:08)
[2019-08-21] MEDS: DOCUSATE SODIUM 100 MG CAPSULE (FP) PO SCH ×3 (06:36→21:08)
[2019-08-21] MEDS: PREGABALIN 100 MG CAPSULE PO SCH ×3 (06:36→21:08)
[2019-08-21] MEDS: ACETAMINOPHEN 500 MG TABLET (FP) PO SCH ×3 (06:36→20:43)
[2019-08-21 09:49] LABS: BASO % 0.4 % (0-2.0); EOS % 3.1 % (0-4.5); HEMATOCRIT 28.2 % (32.4-45.2); HEMOGLOBIN 9.3 GM/dL (10.7-15.3); MCH 27.9 pg (25.7-33.7); MCHC 33.1 g/dl (32.0-36.0); MEAN CELL VOLUME 84.4 fl (80-96); MEAN PLT VOLUME 8.7 fl (7.5-11.1); MONO % 11.6 % (3.8-10.2); NEUT % 74.9 % (42.8-82.8); PLATELET COUNT 287 K/MM3 (134-434); RBC 3.34 M/mm3 (3.60-5.2); RDW 13.4 % (11.6-15.6); WHITE BLOOD COUNT 11.5 K/mm3 (4.0-10.0)
[2019-08-21] MEDS: BUDESONIDE/FORMETEROL FUMARATE 80/4.5 mcg INHALER IH SCH ×2 (10:18→21:08)
[2019-08-21 10:24] LABS: BLOOD UREA NITROGEN 7.9 mg/dL (7-18); CALCIUM 8.6 mg/dL (8.5-10.1); CREATININE 0.4 mg/dL (0.55-1.3); POTASSIUM 3.3 mmol/L (3.5-5.1)
[2019-08-21] MEDS: PANTOPRAZOLE 40 MG TABLET PO SCH (12:07)
[2019-08-21] MEDS: amLODIPine BESYLATE 5 MG TABLET (FP) PO SCH (12:07)
[2019-08-21] MEDS: CITALOPRAM HYDROBROMIDE 20 MG TABLET PO SCH (12:08)
[2019-08-21] MEDS: HYDROCHLOROTHIAZIDE 12.5 MG CAPSULE (FP) PO SCH (12:08)
[2019-08-21] MEDS: VALSARTAN 160 MG TABLET (UD) PO SCH (12:08)
[2019-08-21] MEDS: diazePAM 2 MG TABLET PO SCH ×2 (12:09→21:08)
[2019-08-21] MEDS: oxyCODONE HCL 5 MG TABLET PO PRN ×3 (12:11→20:43)
[2019-08-21] MEDS ORDERED: POTASSIUM CHLORIDE TABS 20 MEQ TABLET.ER (FP) PO ONE (14:20)
[2019-08-21] MEDS ORDERED: COD LIVER OIL/ZINC OXIDE PASTE 56 GM TUBE TP PRN (14:22)
--- NOTE | 2019-08-21 15:26 | PN ---
Progress Note, Physician History of Present Illness: Patient seen and examined at bedside. no complaints. got 2 unit PRBCs total and hemoglobin had an appropriate response and is now 9.3 today from 7.5 2 days ago. Afebrile over the past 24 hours. She denies nausea vomiting fever chills chest pain or SOB. not having bowel movements but passing flatus and urinating. drinking well but not eating as well because she does not want a diabetic or sodium controlled diet. - Current Medication List Current Medications: Active Medications Acetaminophen (Tylenol -) 1,000 mg PO Q8H [facility] Last Admin: 08/21/19 13:10 Dose: 1,000 mg Amlodipine Besylate (Norvasc -) 5 mg PO DAILY [facility] Last Admin: 08/21/19 12:07 Dose: 5 mg Budesonide/Formoterol Fumarate (Symbicort 80/4.5mcg -) 2 puff IH BID [facility] Last Admin: 08/21/19 10:18 Dose: 2 puff Citalopram Hydrobromide (Celexa -) 20 mg PO DAILY [facility] Last Admin: 08/21/19 12:08 Dose: 20 mg Diazepam (Valium -) 2 mg PO BID [facility] Last Admin: 08/21/19 12:09 Dose: 2 mg Docusate Sodium (Colace -) 100 mg PO TID [facility] Last Admin: 08/21/19 14:14 Dose: 100 mg Hydrochlorothiazide (Hctz -) 12.5 mg PO DAILY [facility] Last Admin: 08/21/19 12:08 Dose: 12.5 mg Insulin Aspart (Novolog Vial Sliding Scale -) 1 vial SQ ACHS [facility]; Protocol Last Admin: 08/21/19 12:18 Dose: Not Given Metoprolol Succinate (Toprol Xl -) 100 mg PO DAILY [facility] Last Admin: 08/21/19 12:07 Dose: 100 mg Ondansetron HCl (Zofran Injection) 4 mg IVPUSH Q6H PRN PRN Reason: NAUSEA AND/OR VOMITING Oxycodone HCl (Roxicodone -) 5 mg PO Q3H PRN PRN Reason: PAIN LEVEL 4 - 6 Last Admin: 08/20/19 08:52 Dose: 5 mg Oxycodone HCl (Roxicodone -) 10 mg PO Q3H PRN PRN Reason: PAIN LEVEL 7 - 10 Last Admin: 08/21/19 12:11 Dose: 10 mg Pantoprazole Sodium (Protonix -) 40 mg PO DAILY [facility] Last Admin: 08/21/19 12:07 Dose: 40 mg Pregabalin (Lyrica -) 100 mg PO TID [facility] Last Admin: 08/21/19 15:10 Dose: 100 mg Sitagliptin Phosphate (Januvia -) 100 mg PO DAILY@0700 [facility] Last Admin: 08/21/19 06:36 Dose: 100 mg Valsartan (Diovan -) 320 mg PO DAILY [facility] Last Admin: 08/21/19 12:08 Dose: 320 mg - Objective Vital Signs: Vital Signs Temperature 98.6 F 08/21/19 06:00 Pulse Rate 70 08/21/19 06:00 Respiratory Rate 08/21/19 06:00 Blood Pressure 157/83 08/21/19 06:00 O2 Sat by Pulse Oximetry (%) 97 08/20/19 21:00 Constitutional: Yes: No Distress HENT: Yes: Atraumatic Cardiovascular: Yes: Regular Rate and Rhythm Respiratory: Yes: bibasilar faint crackles Gastrointestinal: Yes: Soft Extremities: Yes: WNL Edema: No Wound/Incision: Yes: Clean/Dry, Well Approximated Neurological: Yes: Alert Psychiatric: Yes: Alert Labs: CBC, BMP 08/21/19 08:10 08/21/19 08:10 Impression/Plan Impression/Plan: 79-year-old woman with multiple medical problems admitted POD#6 s/p L3-S1 laminectomy, L4-L5, L5-S1 posterior lumbar interbody fusion, L3-S1 posterior instrument indicated spinal fusion. Obesity GERD Bilateral venous insufficiency Major depression/Anxiety DM HbA1C 5.1% HTN HLD Polyneuropathy COPD trend CBC-s/p 2 units PRBCs total and hemoglobin had an appropriate response and is now 9.3 post transfusion today from 7.5 pretransfusion 2 days ago antipyretics PRN incentive spirometer f/u culutres-BCx negative at 96 hours UA negative and UCx is negative final For HTN continue HCTZ norvasc valsartan and metoprolol continue symbicort for COPD pain control with oxycodone and tylenol continue Lyrica bowel regimen with colace antiemetics continue celexa for depression and valium for anxiety PPI for history of GERD change to regular diet as patient is refusing diabetic and/or sodium controlled diets Visit type - Emergency Visit Emergency Visit: No - New Patient This patient is new to me today: No - Critical Care Critical Care patient: No
[2019-08-22] MEDS ORDERED: PT OWN MED DRAWER 7, Y5N ONE ×2 (05:54→17:29)
[2019-08-22] MEDS: DOCUSATE SODIUM 100 MG CAPSULE (FP) PO SCH ×3 (05:59→22:33)
[2019-08-22] MEDS: oxyCODONE HCL 5 MG TABLET PO PRN ×2 (06:00→19:08)
[2019-08-22] MEDS: ACETAMINOPHEN 500 MG TABLET (FP) PO SCH ×3 (06:00→22:32)
[2019-08-22] MEDS: PREGABALIN 100 MG CAPSULE PO SCH ×3 (06:00→22:34)
[2019-08-22] MEDS: INSULIN SLIDING SCALE (NOVOLOG) 1 VIAL SQ SCH ×4 (06:01→22:35)
[2019-08-22 08:07] LABS: HEMATOCRIT 28.7 % (32.4-45.2); HEMOGLOBIN 9.4 GM/dL (10.7-15.3); MCH 27.6 pg (25.7-33.7); MCHC 32.7 g/dl (32.0-36.0); MEAN CELL VOLUME 84.4 fl (80-96); MEAN PLT VOLUME 8.1 fl (7.5-11.1); PLATELET COUNT 332 K/MM3 (134-434); RDW 13.4 % (11.6-15.6); WHITE BLOOD COUNT 12.8 K/mm3 (4.0-10.0)
[2019-08-22 08:21] LABS: BLOOD UREA NITROGEN 6.5 mg/dL (7-18); CALCIUM 8.6 mg/dL (8.5-10.1); CREATININE 0.5 mg/dL (0.55-1.3); MAGNESIUM 1.9 mg/dL (1.8-2.4); POTASSIUM 3.6 mmol/L (3.5-5.1)
--- NOTE | 2019-08-22 09:03 | PN ---
Teaching Attending Note Name of Resident: Mitchell Reinoso ATTENDING PHYSICIAN STATEMENT I saw and evaluated the patient. I reviewed the resident's note and discussed the case with the resident. I agree with the resident's findings and plan as documented. SUBJECTIVE: OBJECTIVE: Vital Signs Temperature 98.2 F 08/22/19 06:00 Pulse Rate 76 08/22/19 06:00 Respiratory Rate 18 08/22/19 06:00 Blood Pressure 149/81 08/22/19 06:00 O2 Sat by Pulse Oximetry (%) 97 08/21/19 21:00 General: Elderly female, comfortable, not in distress HEENT; mucous membranes moist, no anemia, no jaundice, PERRLA, no nystagmus Neck: no JVD, supple, no bruit, thyroid palpably normal, normal carotid pulsations. Chest: Nontender, clear to auscultation bilaterally/bilateral wheezing/ bilateral basal rales. CVS: S1-S2 regular/irregular no murmur/gallop/rub Abdomen: Nondistended, soft, bowel sounds present. Extremities: Status post L3/S1 laminectomy ,no edema., No cough tenderness, pulses present STILL PUMP OPERATOR: AO X3 , no gross motor sensory deficit Vital Signs Temperature 98.2 F 08/22/19 06:00 Pulse Rate 76 08/22/19 06:00 Respiratory Rate 18 08/22/19 06:00 Blood Pressure 149/81 08/22/19 06:00 O2 Sat by Pulse Oximetry (%) 97 08/21/19 21:00 Microbiology 08/17/19 02:54 Blood - Peripheral Venous Blood Culture - Final NO GROWTH AFTER 5 DAYS INCUBATION 08/17/19 02:54 Blood - Peripheral Venous Blood Culture - Final NO GROWTH AFTER 5 DAYS INCUBATION Active Medications Acetaminophen (Tylenol -) 1,000 mg PO Q8H [facility] Last Admin: 08/22/19 06:00 Dose: 1,000 mg Amlodipine Besylate (Norvasc -) 5 mg PO DAILY [facility] Last Admin: 08/21/19 12:07 Dose: 5 mg Budesonide/Formoterol Fumarate (Symbicort 80/4.5mcg -) 2 puff IH BID [facility] Last Admin: 08/21/19 21:08 Dose: 2 puff Citalopram Hydrobromide (Celexa -) 20 mg PO DAILY [facility] Last Admin: 08/21/19 12:08 Dose: 20 mg Diazepam (Valium -) 2 mg PO BID [facility] Last Admin: 08/21/19 21:08 Dose: 2 mg Docusate Sodium (Colace -) 100 mg PO TID [facility] Last Admin: 08/22/19 05:59 Dose: 100 mg Hydrochlorothiazide (Hctz -) 12.5 mg PO DAILY [facility] Last Admin: 08/21/19 12:08 Dose: 12.5 mg Insulin Aspart (Novolog Vial Sliding Scale -) 1 vial SQ ACHS [facility]; Protocol Last Admin: 08/22/19 06:01 Dose: Not Given Metoprolol Succinate (Toprol Xl -) 100 mg PO DAILY [facility] Last Admin: 08/21/19 12:07 Dose: 100 mg Ondansetron HCl (Zofran Injection) 4 mg IVPUSH Q6H PRN PRN Reason: NAUSEA AND/OR VOMITING Oxycodone HCl (Roxicodone -) 5 mg PO Q3H PRN PRN Reason: PAIN LEVEL 4 - 6 Last Admin: 08/21/19 20:43 Dose: 5 mg Oxycodone HCl (Roxicodone -) 10 mg PO Q3H PRN PRN Reason: PAIN LEVEL 7 - 10 Last Admin: 08/22/19 06:00 Dose: 10 mg Pantoprazole Sodium (Protonix -) 40 mg PO DAILY [facility] Last Admin: 08/21/19 12:07 Dose: 40 mg Pregabalin (Lyrica -) 100 mg PO TID [facility] Last Admin: 08/22/19 06:00 Dose: 100 mg Sitagliptin Phosphate (Januvia -) 100 mg PO DAILY@0700 [facility] Last Admin: 08/22/19 06:01 Dose: 100 mg Valsartan (Diovan -) 320 mg PO DAILY [facility] Last Admin: 08/21/19 12:08 Dose: 320 mg ASSESSMENT AND PLAN:79-year-old woman with multiple medical problems admitted POD#6 s/p L3-S1 laminectomy, L4-L5, L5-S1 posterior lumbar interbody fusion, L3- S1 posterior instrument indicated spinal fusion. Patient remained hemodynamically stable and afebrile 1. Anemia: H&H are stable after transfusion 2. Type 2 diabetes mellitus: Optimize glycemic control 3. COPD: Stable continue current management 4. Hypertension: Well-controlled continue current medication 5. Polyneuropathy: Continue pain medication 6.: Status post spinal surgery: Postop management as per surgery team 7. Major depression: Continue all home medications Obesity
[2019-08-22] MEDS: HYDROCHLOROTHIAZIDE 12.5 MG CAPSULE (FP) PO SCH (10:20)
[2019-08-22] MEDS: PANTOPRAZOLE 40 MG TABLET PO SCH (10:20)
[2019-08-22] MEDS: amLODIPine BESYLATE 5 MG TABLET (FP) PO SCH (10:20)
[2019-08-22] MEDS: CITALOPRAM HYDROBROMIDE 20 MG TABLET PO SCH (10:20)
[2019-08-22] MEDS: diazePAM 2 MG TABLET PO SCH ×2 (10:22→22:34)
[2019-08-22] MEDS: VALSARTAN 160 MG TABLET (UD) PO SCH (10:23)
[2019-08-22] MEDS: BUDESONIDE/FORMETEROL FUMARATE 80/4.5 mcg INHALER IH SCH ×2 (10:27→22:35)
[2019-08-23] MEDS: oxyCODONE HCL 5 MG TABLET PO PRN ×3 (04:45→18:31)
[2019-08-23] MEDS: ACETAMINOPHEN 500 MG TABLET (FP) PO SCH ×3 (05:09→21:50)
[2019-08-23] MEDS: PREGABALIN 100 MG CAPSULE PO SCH ×2 (05:10→17:17)
[2019-08-23] MEDS: DOCUSATE SODIUM 100 MG CAPSULE (FP) PO SCH ×3 (05:10→22:56)
[2019-08-23] MEDS: INSULIN SLIDING SCALE (NOVOLOG) 1 VIAL SQ SCH ×4 (06:27→22:53)
--- NOTE | 2019-08-23 09:18 | PN ---
Progress Note, Physician Chief Complaint: He feels comfortable participating in the PT he still comfortable - Current Medication List Current Medications: Active Medications Acetaminophen (Tylenol -) 1,000 mg PO Q8H [facility] Last Admin: 08/23/19 05:09 Dose: 1,000 mg Amlodipine Besylate (Norvasc -) 5 mg PO DAILY [facility] Last Admin: 08/22/19 10:20 Dose: 5 mg Budesonide/Formoterol Fumarate (Symbicort 80/4.5mcg -) 2 puff IH BID [facility] Last Admin: 08/22/19 22:35 Dose: 2 puff Citalopram Hydrobromide (Celexa -) 20 mg PO DAILY [facility] Last Admin: 08/22/19 10:20 Dose: 20 mg Diazepam (Valium -) 2 mg PO BID [facility] Last Admin: 08/22/19 22:34 Dose: 2 mg Docusate Sodium (Colace -) 100 mg PO TID [facility] Last Admin: 08/23/19 05:10 Dose: 100 mg Hydrochlorothiazide (Hctz -) 12.5 mg PO DAILY [facility] Last Admin: 08/22/19 10:20 Dose: 12.5 mg Insulin Aspart (Novolog Vial Sliding Scale -) 1 vial SQ ACHS [facility]; Protocol Last Admin: 08/23/19 06:27 Dose: Not Given Metoprolol Succinate (Toprol Xl -) 100 mg PO DAILY [facility] Last Admin: 08/22/19 10:22 Dose: 100 mg Ondansetron HCl (Zofran Injection) 4 mg IVPUSH Q6H PRN PRN Reason: NAUSEA AND/OR VOMITING Oxycodone HCl (Roxicodone -) 5 mg PO Q3H PRN PRN Reason: PAIN LEVEL 4 - 6 Last Admin: 08/23/19 04:45 Dose: 5 mg Oxycodone HCl (Roxicodone -) 10 mg PO Q3H PRN PRN Reason: PAIN LEVEL 7 - 10 Last Admin: 08/22/19 19:08 Dose: 10 mg Pantoprazole Sodium (Protonix -) 40 mg PO DAILY [facility] Last Admin: 08/22/19 10:20 Dose: 40 mg Pregabalin (Lyrica -) 100 mg PO TID [facility] Last Admin: 08/23/19 05:10 Dose: 100 mg Sitagliptin Phosphate (Januvia -) 100 mg PO DAILY@0700 [facility] Last Admin: 08/23/19 06:24 Dose: 100 mg Valsartan (Diovan -) 320 mg PO DAILY [facility] Last Admin: 08/22/19 10:23 Dose: 320 mg - Objective Vital Signs: Vital Signs Temperature 98.3 F 08/23/19 07:24 Pulse Rate 65 08/23/19 07:24 Respiratory Rate 20 08/23/19 07:24 Blood Pressure 150/56 L 08/23/19 07:24 O2 Sat by Pulse Oximetry (%) 96 08/22/19 21:00 General: Elderly female, comfortable, not in distress HEENT; mucous membranes moist, no anemia, no jaundice, PERRLA, no nystagmus Neck: no JVD, supple, no bruit, thyroid palpably normal, normal carotid pulsations. Chest: Nontender, clear to auscultation bilaterally/bilateral wheezing/ bilateral basal rales. CVS: S1-S2 regular/irregular no murmur/gallop/rub Abdomen: Nondistended, soft, bowel sounds present. Extremities: Status post L3/S1 laminectomy ,no edema., No cough tenderness, pulses present SAMPLE BUILDER: AO X3 , no gross motor sensory deficit CBC, [facility] 08/23/19 08:30 08/23/19 08:30 ASSESSMENT AND PLAN:79-year-old woman with multiple medical problems admitted POD#6 s/p L3-S1 laminectomy, L4-L5, L5-S1 posterior lumbar interbody fusion, L3- S1 posterior instrument indicated spinal fusion. Patient remained hemodynamically stable and afebrile 1. Anemia: H&H are stable after transfusion 2. Type 2 diabetes mellitus: Optimize glycemic control 3. COPD: Stable continue current management 4. Hypertension: Well-controlled continue current medication 5. Polyneuropathy: Continue pain medication 6.: Status post spinal surgery: Postop management as per surgery team 7. Major depression: Continue all home medications Obesity Labs: CBC, [facility] 08/22/19 06:50 08/22/19 06:50
[2019-08-23 09:53] LABS: BASO % 0.4 % (0-2.0); EOS % 4.5 % (0-4.5); HEMATOCRIT 29.5 % (32.4-45.2); HEMOGLOBIN 9.6 GM/dL (10.7-15.3); MCHC 32.7 g/dl (32.0-36.0); MEAN CELL VOLUME 85.6 fl (80-96); MEAN PLT VOLUME 8.1 fl (7.5-11.1); MONO % 9.1 % (3.8-10.2); PLATELET COUNT 408 K/MM3 (134-434); RBC 3.44 M/mm3 (3.60-5.2); RDW 13.5 % (11.6-15.6); WHITE BLOOD COUNT 12.5 K/mm3 (4.0-10.0)
[2019-08-23 10:16] LABS: BLOOD UREA NITROGEN 5.8 mg/dL (7-18); CALCIUM 8.6 mg/dL (8.5-10.1); CREATININE 0.5 mg/dL (0.55-1.3); POTASSIUM 3.5 mmol/L (3.5-5.1)
[2019-08-23] MEDS: PANTOPRAZOLE 40 MG TABLET PO SCH (10:43)
[2019-08-23] MEDS: amLODIPine BESYLATE 5 MG TABLET (FP) PO SCH (10:43)
[2019-08-23] MEDS: CITALOPRAM HYDROBROMIDE 20 MG TABLET PO SCH (10:43)
[2019-08-23] MEDS: diazePAM 2 MG TABLET PO SCH (10:43)
[2019-08-23] MEDS: HYDROCHLOROTHIAZIDE 12.5 MG CAPSULE (FP) PO SCH (10:43)
[2019-08-23] MEDS: VALSARTAN 160 MG TABLET (UD) PO SCH (10:44)
[2019-08-23] MEDS: BUDESONIDE/FORMETEROL FUMARATE 80/4.5 mcg INHALER IH SCH ×2 (10:46→22:56)
[2019-08-23 12:13] VITALS: BMI 31.2
[2019-08-24] MEDS: ACETAMINOPHEN 500 MG TABLET (FP) PO SCH ×3 (04:26→21:53)
[2019-08-24] MEDS: INSULIN SLIDING SCALE (NOVOLOG) 1 VIAL SQ SCH ×4 (06:26→22:03)
[2019-08-24] MEDS: DOCUSATE SODIUM 100 MG CAPSULE (FP) PO SCH ×3 (06:28→21:52)
[2019-08-24] MEDS: CITALOPRAM HYDROBROMIDE 20 MG TABLET PO SCH (09:55)
[2019-08-24] MEDS: amLODIPine BESYLATE 5 MG TABLET (FP) PO SCH (09:55)
[2019-08-24] MEDS: PANTOPRAZOLE 40 MG TABLET PO SCH (09:55)
[2019-08-24] MEDS: oxyCODONE HCL 5 MG TABLET PO PRN (09:56)
[2019-08-24] MEDS: HYDROCHLOROTHIAZIDE 12.5 MG CAPSULE (FP) PO SCH (09:56)
[2019-08-24] MEDS: VALSARTAN 160 MG TABLET (UD) PO SCH (10:01)
[2019-08-24] MEDS: BUDESONIDE/FORMETEROL FUMARATE 80/4.5 mcg INHALER IH SCH ×2 (10:03→21:54)
[2019-08-24] MEDS ORDERED: PT OWN MED DRAWER 7, Y5N ONE (10:49)
--- NOTE | 2019-08-24 12:13 | DS ---
Physical Examination Vital Signs: Vital Signs Temperature 98.7 F 08/24/19 05:00 Pulse Rate 69 08/24/19 05:00 Respiratory Rate 20 08/24/19 05:00 Blood Pressure 160/80 08/24/19 05:00 O2 Sat by Pulse Oximetry (%) 95 08/23/19 21:00 General: Elderly female, comfortable, participating in physical therapy not in distress HEENT; mucous membranes moist, no anemia, no jaundice, PERRLA, no nystagmus Neck: no JVD, supple, no bruit, thyroid palpably normal, normal carotid pulsations. Chest: Nontender, clear to auscultation bilaterally/bilateral wheezing/ bilateral basal rales. CVS: S1-S2 regular/irregular no murmur/gallop/rub Abdomen: Nondistended, soft, bowel sounds present. Extremities: Status post L3/S1 laminectomy ,no edema., No cough tenderness, pulses present SANDBLASTER STONE: AO X3 , no gross motor sensory deficit Labs: CBC, BMP 08/23/19 08:30 08/23/19 08:30 Discharge Summary Problems reviewed: Yes Reason For Visit: SPONDYLOLITHESIS, LUMB REGION Current Active Problems Back pain (Acute) DM (diabetes mellitus) (Acute) HTN (hypertension) (Acute) S/P lumbar laminectomy (Acute) Procedures: Principal: Patient underwent L3 S1 laminectomy and posterior stabilization. Hospital Course: 79 years old female multiple medical comorbidities including chronic back pain due to multiple lumbar spondylolisthesis, hypertension, type 2 diabetes mellitus , disc herniation, anxiety depression, COPD admitted for L3-S1 laminectomy with posterior implant by spine orthopedic surgery, underwent surgery on August 15, 2019, post operative course was complicated with anemia received 2 units blood transfusion all the time patient gradually improved have some reactive elevated total white blood cell count, PT started patient is participating in the PT orthopedic surgery cleared her to discharge, patient will be transferred to a subacute rehabilitation for postoperative physical therapy. Goals: Patient back to baseline functioning. Condition: Stable - Instructions Diet, Activity, Other Instructions: Low-salt low-cholesterol diabetic diet PT recommendation as per operating surgeon Home physical therapy Daily dressing change. No NSAIDS Follow-up in Dr. Hicks's office 2 weeks Referrals: Abdelrahman Hicks MD [Staff Physician] - 2 Weeks Disposition: VNS/HOME HEALTH CARE - Home Medications Comprehensive Discharge Medication List: Ambulatory Orders Amlodipine Besylate [Norvasc -] 5 mg PO DAILY 07/22/19 Citalopram Hydrobromide [Celexa -] 20 mg PO DAILY 07/22/19 Fluticasone/Salmeterol [Advair Hfa 230-21 Mcg Inhaler] 1 inh PO BID PRN Metoprolol Succinate [Toprol Xl] 100 mg PO DAILY 07/22/19 Pregabalin [Lyrica] 100 mg PO TID 07/22/19 Sitagliptin Phosphate [Januvia] 100 mg PO DAILY 07/22/19 Valsartan/Hydrochlorothiazide [Diovan Hct 320-12.5 mg Tab] 1 each PO DAILY 07/22 Pantoprazole Sodium [Protonix] 40 mg PO DAILY 07/25/19 Acetaminophen [Tylenol .Extra-Strength -] 1,000 mg PO Q8H tablet 08/24/19 Docusate Sodium [Colace -] 100 mg PO TID capsule 08/24/19 Insulin Sliding Scale [Novolog Vial Sliding Scale -] 1 vial SQ ACHS units 08/24 oxyCODONE HCL [Roxicodone -] 10 mg PO Q3H PRN #30 tablet MDD 4 08/24/19 Prescription Drug Monitoring Program (I-STOP) results: I-STOP reviewed and no issues identified
[2019-08-24] MEDS ORDERED: oxyCODONE HCL 5 MG TABLET PO PRN (19:26)
[2019-08-25] MEDS ORDERED: PT OWN MED DRAWER 7, Y5N ONE (06:11)
[2019-08-25] MEDS: ACETAMINOPHEN 500 MG TABLET (FP) PO SCH (06:13)
[2019-08-25] MEDS: DOCUSATE SODIUM 100 MG CAPSULE (FP) PO SCH (06:16)
[2019-08-25] MEDS: INSULIN SLIDING SCALE (NOVOLOG) 1 VIAL SQ SCH ×2 (06:18→12:00)
[2019-08-25] MEDS: CITALOPRAM HYDROBROMIDE 20 MG TABLET PO SCH (11:09)
[2019-08-25] MEDS: HYDROCHLOROTHIAZIDE 12.5 MG CAPSULE (FP) PO SCH (11:10)
[2019-08-25] MEDS: PANTOPRAZOLE 40 MG TABLET PO SCH (11:10)
[2019-08-25] MEDS: VALSARTAN 160 MG TABLET (UD) PO SCH (11:10)
[2019-08-25] MEDS: amLODIPine BESYLATE 5 MG TABLET (FP) PO SCH (11:10)
[2019-08-25] MEDS: BUDESONIDE/FORMETEROL FUMARATE 80/4.5 mcg INHALER IH SCH (11:13)
--- NOTE | 2019-08-25 12:55 | PN ---
Progress Note, Physician Chief Complaint: He feels comfortable participating in the PT he still comfortable - Current Medication List Current Medications: Active Medications Acetaminophen (Tylenol -) 1,000 mg PO Q8H [facility] Last Admin: 08/25/19 06:13 Dose: 1,000 mg Amlodipine Besylate (Norvasc -) 5 mg PO DAILY [facility] Last Admin: 08/25/19 11:10 Dose: 5 mg Budesonide/Formoterol Fumarate (Symbicort 80/4.5mcg -) 2 puff IH BID [facility] Last Admin: 08/25/19 11:13 Dose: 2 puff Citalopram Hydrobromide (Celexa -) 20 mg PO DAILY [facility] Last Admin: 08/25/19 11:09 Dose: 20 mg Docusate Sodium (Colace -) 100 mg PO TID [facility] Last Admin: 08/25/19 06:16 Dose: 100 mg Hydrochlorothiazide (Hctz -) 12.5 mg PO DAILY [facility] Last Admin: 08/25/19 11:10 Dose: 12.5 mg Insulin Aspart (Novolog Vial Sliding Scale -) 1 vial SQ ACHS [facility]; Protocol Last Admin: 08/25/19 12:00 Dose: Not Given Metoprolol Succinate (Toprol Xl -) 100 mg PO DAILY [facility] Last Admin: 08/25/19 11:10 Dose: 100 mg Ondansetron HCl (Zofran Injection) 4 mg IVPUSH Q6H PRN PRN Reason: NAUSEA AND/OR VOMITING Oxycodone HCl (Roxicodone -) 5 mg PO Q3H PRN PRN Reason: PAIN LEVEL 6-10 Last Admin: 08/24/19 20:58 Dose: 5 mg Pantoprazole Sodium (Protonix -) 40 mg PO DAILY [facility] Last Admin: 08/25/19 11:10 Dose: 40 mg Sitagliptin Phosphate (Januvia -) 100 mg PO DAILY@0700 [facility] Last Admin: 08/25/19 06:16 Dose: 100 mg Valsartan (Diovan -) 320 mg PO DAILY [facility] Last Admin: 08/25/19 11:10 Dose: 320 mg - Objective Vital Signs: Vital Signs Temperature 98.4 F 08/25/19 06:17 Pulse Rate 72 08/25/19 06:17 Respiratory Rate 20 08/25/19 06:17 Blood Pressure 153/78 08/25/19 06:17 O2 Sat by Pulse Oximetry (%) 97 08/24/19 21:00 General: Elderly female, comfortable, not in distress HEENT; mucous membranes moist, no anemia, no jaundice, PERRLA, no nystagmus Neck: no JVD, supple, no bruit, thyroid palpably normal, normal carotid pulsations. Chest: Nontender, clear to auscultation bilaterally/bilateral wheezing/ bilateral basal rales. CVS: S1-S2 regular/irregular no murmur/gallop/rub Abdomen: Nondistended, soft, bowel sounds present. Extremities: Status post L3/S1 laminectomy ,no edema., No cough tenderness, pulses present RN ER: AO X3 , no gross motor sensory deficit Labs: CBC, BMP 08/23/19 08:30 08/23/19 08:30 Assessment/Plan ASSESSMENT AND PLAN:79-year-old woman with multiple medical problems admitted POD#6 s/p L3-S1 laminectomy, L4-L5, L5-S1 posterior lumbar interbody fusion, L3- S1 posterior instrument indicated spinal fusion. Patient remained hemodynamically stable and afebrile 1. Anemia: H&H are stable after transfusion 2. Type 2 diabetes mellitus: Optimize glycemic control 3. COPD: Stable continue current management 4. Hypertension: Well-controlled continue current medication 5. Polyneuropathy: Continue pain medication 6.: Status post spinal surgery: Postop management as per surgery team 7. Major depression: Continue all home medications Obesity
[2019-08-25 13:33] VITALS: BP 151/75; PULSE 70; TEMP 98
== END 2019-08-25 14:40 | disposition home health service (06) | DRG 454 ==
LOC: JSAMEDAYSX 06:07 → JICU 18:09 → J8W 08-16 16:51
PROVIDERS: ADMIT Orthopaedic Surgery Orthopaedic Surgery of the Spine; ATTEND Internal Medicine
PROC: 0SG1071 Fusion of 2 or more Lumbar Vertebral Joints with Autologous Tissue Substitute, Posterior Approach, Posterior Column, Open Approach (ICD-10-PCS; 2019-08-15)
PROC: 0QB00ZZ Excision of Lumbar Vertebra, Open Approach (ICD-10-PCS; 2019-08-15)
PROC: 0SG30AJ Fusion of Lumbosacral Joint with Interbody Fusion Device, Posterior Approach, Anterior Column, Open Approach (ICD-10-PCS; 2019-08-15)
PROC: 0SG3071 Fusion of Lumbosacral Joint with Autologous Tissue Substitute, Posterior Approach, Posterior Column, Open Approach (ICD-10-PCS; 2019-08-15)
PROC: 0SB40ZZ Excision of Lumbosacral Disc, Open Approach (ICD-10-PCS; 2019-08-15)
PROC: 07DR3ZX Extraction of Iliac Bone Marrow, Percutaneous Approach, Diagnostic (ICD-10-PCS; 2019-08-15)
PROC: 4A1004G Monitoring of Central Nervous Electrical Activity, Intraoperative, Open Approach (ICD-10-PCS; 2019-08-15)
PROC: B01BZZZ Fluoroscopy of Spinal Cord (ICD-10-PCS; 2019-08-15)
PROC: 0SG10AJ Fusion of 2 or more Lumbar Vertebral Joints with Interbody Fusion Device, Posterior Approach, Anterior Column, Open Approach (ICD-10-PCS; principal; 2019-08-15 08:00)
PROC: 30233N1 Transfusion of Nonautologous Red Blood Cells into Peripheral Vein, Percutaneous Approach (ICD-10-PCS; 2019-08-20)
DX: M43.16 Spondylolisthesis, lumbar region (principal); D62 Acute posthemorrhagic anemia; M48.061 Spinal stenosis, lumbar region without neurogenic claudication; M53.2X7 Spinal instabilities, lumbosacral region; M54.17 Radiculopathy, lumbosacral region; D64.9 Anemia, unspecified; E11.9 Type 2 diabetes mellitus without complications; J44.9 Chronic obstructive pulmonary disease, unspecified; I10 Essential (primary) hypertension; G62.9 Polyneuropathy, unspecified; F41.8 Other specified anxiety disorders; E87.6 Hypokalemia; D72.829 Elevated white blood cell count, unspecified; K21.9 Gastro-esophageal reflux disease without esophagitis; E66.9 Obesity, unspecified; Z68.30 Body mass index [BMI] 30.0-30.9, adult; E78.5 Hyperlipidemia, unspecified; I87.2 Venous insufficiency (chronic) (peripheral)
CPT/HCPCS: 36415; 36430; 36511; 71045-TC-FY; 76000-TC-FY; 80048; 80053; 81003; 82962; 83036; 83735; 84100; 85025; 85027; 86850; 86900; 86901; 86922; 87040; 87086; 88304-TC; 94010; 94760; 97116-GP; 97162-GP; J0131; J1644; P9038; P9058